=== PATIENT | female | born 1955 | race Hispanic/Latino ===

== ENCOUNTER 2018-09-23 20:04 | Inpatient (IN) | payer OTHER ==
[~2018-09-23] VITALS: Ht 154.9 cm; Wt 97.6 kg
--- OUTSIDE RECORDS SUMMARY | 2018-09-23 20:07 | XMS REPORT | Clinical Summary ---
Author Author ROBERTO [facility] Organization [facility] Address Unknown Phone Unavailable Care Team Providers Care Approver Name Role Phone Chen Orourke PCP Unavailable Allergies Comments Active Allergy Reactions Severity Noted Date Adhesive Itching, Rash Low 09/20/2018 Hands peeling, upper lip felt puffy Clindamycin Itching, Rash Low 09/20/2018 Latex Itching, Rash Low 07/02/2018 Medications End Date Status Medication Sig Dispensed Refills Start Date Active calcium carbonate Take 1 tablet 0 (CALCIUM 600 ORAL) by mouth daily. Active atorvastatin (LIPITOR) 10 Take 10 mg by 0 MG tablet mouth nightly. Active losartan (COZAAR) 50 MG Take 50 mg by 0 tablet mouth nightly. Active cinnamon bark 500 mg Take 500 mg 0 capsule by mouth daily. Active amLODIPine (NORVASC) 10 Take 10 mg by 0 MG tablet mouth daily. Active omeprazole (PRILOSEC) 40 Take 40 mg by 0 MG capsule mouth daily. Active metFORMIN (GLUCOPHAGE-XR) Take 500 mg 0 500 MG 24 hr tablet by mouth 2 (two) times daily. Active hydrocortisone 0.5 % Apply 0 cream topically as needed. 09/20/2018 Discontinued metFORMIN (GLUCOPHAGE) Take 500 mg 0 500 MG tablet by mouth 2 (two) times daily with breakfast and dinner. 09/20/2018 Discontinued pantoprazole (PROTONIX) Take 20 mg by 0 20 MG tablet mouth daily. 09/20/2018 Discontinued mlhmtqf-ehkahgcnhgkro-ugt Take 1 tablet 0 feine (EXCEDRIN MIGRAINE) by mouth 250-250-65 mg per tablet every 6 (six) hours as needed for Pain. 08/29/2018 amoxicillin (AMOXIL) 500 Take 1 21 capsule 0 08/19/201 MG capsule capsule (500 8 mg total) by mouth 3 (three) times daily for 10 days. 08/24/2018 predniSONE (DELTASONE) 50 Take 1 tablet 5 tablet 0 MG tablet (50 mg total) 8 by mouth daily for 5 days. 08/24/2018 famotidine (PEPCID) 20 MG Take 1 tablet 10 tablet 0 tablet (20 mg total) 8 by mouth 2 (two) times daily for 5 days. Active Problems Not on file Encounters Care Team Description Date Type Specialty Resource, [facility] Phone Arrived 09/20/2018 Hospital Pre-Admission Testing Encounter Stephane Kee MD Allergic reaction, initial encounter (Primary Dx); Rash; Cellulitis, unspecified cellulitis site 08/19/2018 Emergency Emergency Medicine 08/19/2018 Travel Chantell Franks MD 08/16/2018 Anesthesia Event Rajwinder Valentino MD COLONOSCOPY,POLYPECTOMY 08/16/2018 Surgery Rajwinder Valentino MD 08/16/2018 Hospital Encounter Resource, [facility] Phone 08/09/2018 Hospital Pre-Admission Testing Encounter after 09/22/2017 Social History Date Tobacco Use Types Packs/Day Years Used Quit: 2012 Former Smoker 0.5 40 Smokeless Tobacco: Never Used Alcohol Use Drinks/Week oz/Week Comments Yes occasionally Sex Assigned at Date Recorded Not on file Industry Job Start Date Occupation Not on file Not on file Not on file Travel End Travel History Travel Start No recent travel history available. Last Filed Vital Signs Time Taken Vital Sign Reading 08/19/2018 3:26 PM [employer] Blood Pressure 129/69 08/19/2018 3:26 PM [employer] Pulse 83 08/19/2018 3:26 PM [employer] Temperature 37.1 C (98.8 F) 08/19/2018 3:26 PM [employer] Respiratory Rate 18 08/19/2018 3:26 PM [employer] Oxygen Saturation 99% - Inhaled Oxygen - Concentration 09/20/2018 9:46 AM [employer] Weight 93.9 kg (207 lb) 09/20/2018 9:46 AM [employer] Height 154.9 cm (5' 1") 09/20/2018 9:46 AM [employer] Body Mass Index 39.11 Plan of Treatment Care Team Description Date Type Specialty Florin Spain MD [address] [address] 10/01/2018 Hospital Gastroenterology Encounter Florin Spain MD [address] [facility] [place] [address] UPPER ENDOSCOPY 10/01/2018 Surgery Gastroenterology Procedures Comments Procedure Name Priority Date/Time Associated Diagnosis REPORT OF PROCEDURE - 08/16/2018 ENDOSCOPY URL 2:25 PM [employer] TISSUE EXAM AP Routine 08/16/2018 2:03 PM [employer] POCT-GLUCOSE METER Routine 08/16/2018 1:01 PM [employer] COLONOSCOPY,POLYPECTOMY 08/16/2018 Screen for colon cancer 12:25 PM [employer] after 09/22/2017 Results * REPORT OF PROCEDURE - ENDOSCOPY URL (08/16/2018 2:25 PM [employer]) Narrative Performed At * Tissue Exam (08/16/2018 2:03 PM [employer]) Case Report Surgical Pathology [facility] Report [facility] Case: [id number] Authorizing Provider:Rajwinder Valentino MDCollecte d: 08/16/2018 1403 Ordering Location: [facility] ENDOSCOPY Received: 08/16/2018 1831 SERVICES Pathologist: Lindsey Ortez MD Specimen:Polyp, Colon - Rectum DIAGNOSIS A. RECTUM POLYP, BIOPSY: [facility] - INFLAMMATORY POLYP WITH [facility] GRANULATION TISSUE, SURFACE ULCERATIONS AND HYPERPLASTIC CHANGES ( see comment) - NEGATIVE FOR DYSPLASIA OR VIRAL CYTOPATHIC EFFECT Signing Pathologist Direct Phone Line: [phone] COMMENT These polyp can be seen in [facility] Crohn's disease, ulcerative [facility] colitis but they also occur in association with other disorders, such as ischemic colitis, necrotizing enterocolitis, and infectious colitis, diverticulitis, hemorrhoids and they commonly form at the edges of intestinal ulcers and mucosal anastomosis. Clinical correlation recommended.Endoscopic report reviewed. CPT Code(s) SJ/ew [facility] 26926 x1 [facility] CLINICAL HISTORY Screening for colon cancer [facility] SPECIMEN SOURCE Rectum colon polyp [facility] GROSS DESCRIPTION The specimen is received in a [facility] formalin-filled container and [facility] labeled with the patient's information and labeled "rectum colon polyp" and consists of a 0.3 cm fragment of barrera-white soft tissue, submitted entirely A1. CG/pl MICROSCOPIC DESCRIPTION Performed [facility] Specimen Tissue - Polyp, Colon - Rectum Performing Organization Address City/[facility] [address] [place] [address] [facility] * POC-Glucose meter (08/16/2018 1:01 PM [employer]) POC-Glucose Meter 138 (H)Comment: TESTED AT 70 - 110 mg/dL [facility] [address] [facility] [address] Specimen Blood Performing Organization Address City/[facility] Phone [facility] [address] [place] [address] [facility] after 09/22/2017 Insurance Payer Benefit Subscriber ID Type Phone Address Plan / Group [facility] xxxxxxxxxxxx HMO/POS [phone] [facility] CHOICE EXCHANGE
--- OUTSIDE RECORDS SUMMARY | 2018-09-23 20:07 | XMS REPORT | Continuity of Care Document ---
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 09/14/2018 [facility] Arthritis of hip Active 05/04/2017 09/14/2018 [facility] Acid reflux disease Active 12/10/2016 09/14/2018 [facility] Dry eye syndrome Active 08/08/2016 09/14/2018 [facility] Floaters Active 08/08/2016 09/14/2018 [facility] Dental calculus Active 06/13/2016 09/14/2018 [facility] Dyslipidemia on meds /f/u with PCP 2 mo 02/17 Active 02/04/2016 09/14/2018 [facility] Obesity, unspecified: pt refused to see nutritionsit 01/18 Active 02/04/2016 09/14/2018 [facility] Essential hypertension with goal blood pressure less than 140/90: stable on meds /f/u wtih PCP 2 mo Active 02/04/2016 09/14/2018 [facility] Arthralgia of left hip: had PT and seen Orhto /plan for surgery soon per patient 02/17 Active 02/04/2016 09/14/2018 [facility] Gastritis: d/c dex, nexium meds 02/17//f/u with PCP in 2 mo//pt educated to d/c food which increased symptms t Active 02/04/2016 09/14/2018 [facility] Loss of weight: loosign weight ? gastritis: meds changed / f/u with PCP in 2m Active 02/04/2016 09/14/2018 [facility] Dental abrasion: seen dental 01/18//given abx preprocedure perpatient and f/u on 02/11/16 Active 08/01/2015 09/14/2018 [facility] Hyperopia with astigmatism and presbyopia Active 07/25/2015 09/14/2018 [facility] Nuclear sclerosis Active 07/25/2015 09/14/2018 [facility] No diabetic retinopathy in both eyes Active 07/25/2015 09/14/2018 [facility] Dental decay Active 06/14/2015 09/14/2018 [facility] Dental plaque Active 03/22/2015 09/14/2018 [facility] Asymptomatic cholelithiasis Active 10/04/2014 09/14/2018 [facility] Anemia, unspecified Active 06/30/2013 09/14/2018 [facility] Edentulism, partial Active 06/16/2013 09/14/2018 [facility] Edentulous Active 01/19/2013 09/14/2018 [facility] Nasal septal deviation Active 06/01/2012 09/14/2018 [facility] Nystagmus Active 12/24/2011 09/14/2018 [facility] Gait instability Active 12/24/2011 09/14/2018 [facility] [id number] Active 09/14/2018 [facility] 78302971 Active 09/14/2018 [facility] 257439829 Active 09/14/2018 [facility] 294431115 Active 09/14/2018 [facility] Medications Medication Details Route Status Patient Instructions Ordering Provider Order Date Source chlorhexidine (PERIDEX) 0.12 % mouth wash Swish and Spit 15 mL by mouth 2 times daily for 14 days Swish with 1/2 oz of solution in mouth for 30 seconds and spit. Use twice daily.. No Longer Active 09/14/2017 [facility] ergocalciferol (VITAMIN D2) 50,000 unit capsule Take 1 capsule by mouth weekly. Oral Active 06/16/2017 [facility] losartan (COZAAR) 50 mg tablet Take 1 tablet by mouth daily. Oral Active 06/09/2017 [facility] naproxen (NAPROSYN) 500 mg tablet Take 1 tablet by mouth 2 times daily (with meals). Oral Active 06/09/2017 [facility] metFORMIN (GLUCOPHAGE XR) 500 mg ER extended release tablet Take 2 tablets by mouth daily (with breakfast). Oral Active 06/09/2017 [facility] omeprazole (PRILOSEC) 20 mg delayed release capsule Take 1 capsule by mouth daily. Oral Active 12/31/2016 [facility] Mlrugzspnyy-Lujoveuas-Kosyympd (THERAFLU COLD-SORE THROAT, PE,) 20-10-325 mg PwPk Take 1 Packet by mouth 2 times daily as needed for Pain or Fever > 100.5. Oral No Longer Active 12/26/2016 [facility] atorvastatin (LIPITOR) 10 mg tablet Take 1 tablet by mouth at bedtime nightly. Oral Active 11/25/2016 [facility] gabapentin (NEURONTIN) 600 mg tablet Take 1 tablet by mouth 3 times daily. Oral Active 11/03/2016 [facility] hydrocortisone 2.5 % topical cream Apply to affected area 2 times daily. Topical No Longer Active 03/19/2016 [facility] benzocaine-menthol (CEPACOL SORE THROAT, CAMRYN-MEN,) 15-2.6 mg Lozg by Mucous Membrane route. Mucous Membrane No Longer Active 03/08/2016 [facility] fluticasone (FLONASE) 50 mcg/actuation nasal spray Use 1 [place] in each nostril daily. No Longer Active 03/08/2016 [facility] blood glucose (PRECISION XTRA TEST STRIPS) test strips 2 times weekly. No Longer Active 06/07/2015 [facility] CALCIUM CARBONATE/VITAMIN D2 (CALCIUM 500 WITH VITAMIN D OR) 1 tablet po once daily . Active [facility] FERROUS FUMARATE/VIT BCOMP,C (SUPER B COMPLEX OR) 1 tablet po once daily . Active [facility] TURMERIC ROOT EXTRACT OR 1 tablet po once daily . Active [facility] CINNAMON BARK (CINNAMON OR) 2 tablets po once daily . Active [facility] Allergies, Adverse Reactions, Alerts Substance Category Reaction Severity Reaction type Status Date Reported Comments Source Immunizations Immunization Date Given Site Status Last Updated Comments Source Influenza Vaccine, Seasonal, Injectable 08/11/2017 completed [facility] Influenza Vaccine 12/26/2016 Not Given Deferred: Contraindication - Flu A positive [facility] Influenza Vaccine 12/03/2016 Not Given Deferred: Other - not today per pt [facility] Influenza Vaccine 12/22/2015 completed [facility] Influenza Vaccine 10/11/2014 completed [facility] Ketorolac 30mg/1ml Inj (x ) 08/23/2014 completed [facility] Influenza Vaccine 10/10/2013 completed [facility] Hepatitis B Vaccine 10/10/2013 completed [facility] PPD 04/25/2013 completed [facility] PPD 04/22/2013 completed [facility] Hepatitis B Vaccine 02/24/2013 completed [facility] Hepatitis B Vaccine 01/25/2013 completed [facility] Influenza Vaccine 09/16/2011 completed [facility] Influenza Vaccine 09/23/2010 completed [facility] Influenza A (H1N1) Vac Injection 10/16/2009 completed [facility] Influenza Vaccine 07/09/2009 completed [facility] PPV 23 Pneumococcal Polysaccaride 05/07/2009 completed [facility] Tdap Tetanus, diphtheria, acellular pertussis Vaccine 05/07/2009 completed [facility] Results Order Name Results Value Reference Range Date Interpretation Comments Source MAMMOGRAM BILAT SCREEN DIGITAL <p>IMPRESSION: BENIGN</p><p>There is no mammographic evidence of malignancy. A 1 year </p><p>screening mammogram is recommended.</p><p> </p><p>I have reviewed the study and agree with the findings in the </p><p>report.</p><p> </p><p>This document has been electronically signed.</p><p> </p><p>Manuela Godoy M.D.</p><p>ty nguyen/penrad:10/22/2017 11:16:32</p><p> </p><p>Junior Automation Engineer: Venkatesh Kilpatrick [facility] </p><p>[facility] </p><p>letter sent: Benign Exam</p><p>Mammogram BI-RADS: 2 Benign G0202 Z12.31</p> IMPRESSION: BENIGN There is no mammographic evidence of malignancy. A 1 year screening mammogram is recommended. I have reviewed the study and agree with the findings in the report. This document has been electronically signed. ty Prince M.D./penrad:10/22/2017 11:16:32 Junior Automation Engineer: Beatriz Ayala [facility] letter sent: Benign Exam Mammogram BI-RADS: 2 Benign G0202 Z12.31 10/22/2017 [facility] MAMMOGRAM BILAT SCREEN DIGITAL <p> </p><p>#[id number] - MAMMOGRAM BILAT SCREEN DIGITAL</p><p>BILATERAL DIGITAL SCREENING MAMMOGRAM WITH CAD: 10/22/2017</p><p>CLINICAL: Screening for malignancy.</p><p> </p><p>Comparison is made to exams dated:08/13/2016 [facility] </p><p>Center, 07/23/2015 [facility], 03/31/2014, </p><p>03/11/2013 [facility], 01/02/2012, and 07/02/2010 </p><p>[facility].</p><p>The tissue of both breasts is predominately fatty.</p><p>Current study was also evaluated with a Computer Aided Detection </p><p>(CAD) system.</p><p>There are benign calcifications in the left breast.</p><p>No significant masses, calcifications, or other findings are seen </p><p>in either breast.</p><p>There has been no significant interval change.</p><p> </p> #[id number] - MAMMOGRAM BILAT SCREEN DIGITAL BILATERAL DIGITAL SCREENING MAMMOGRAM WITH CAD: 10/22/2017 CLINICAL: Screening for malignancy. Comparison is made to exams dated:08/13/2016 [facility], 07/23/2015 [facility], 03/31/2014, 03/11/2013 [facility], 01/02/2012, and 07/02/2010 [facility]. The tissue of both breasts is predominately fatty. Current study was also evaluated with a Computer Aided Detection (CAD) system. There are benign calcifications in the left breast. No significant masses, calcifications, or other findings are seen in either breast. There has been no significant interval change. 10/22/2017 [facility] MAMMOGRAM BILAT SCREEN DIGITAL <p styleCode="header">Interface, Rad/Mammog In - 10/22/2017 11:43 AM LOCAL ANNOUNCER</p><p>
<span>#[id number] - MAMMOGRAM BILAT SCREEN DIGITAL</span>
<span>BILATERAL DIGITAL SCREENING MAMMOGRAM WITH CAD: 10/22/2017</span>
<span>CLINICAL: Screening for malignancy. </span>

<span>Comparison is made to exams dated: 08/13/2016 [facility] </span>
<span>Center, 07/23/2015 [facility], 03/31/2014, </span>
<span>03/11/2013 [facility], 01/02/2012, and 07/02/2010 </span>
<span>[facility]. </span>
<span>The tissue of both breasts is predominately fatty. </span>
<span>Current study was also evaluated with a Computer Aided Detection </span>
<span>(CAD) system. </span>
<span>There are benign calcifications in the left breast. </span>
<span>No significant masses, calcifications, or other findings are seen </span>
<span>in either breast. </span>
<span>There has been no significant interval change.</span>

<span>IMPRESSION</span>
<span>IMPRESSION: BENIGN</span>
<span>There is no mammographic evidence of malignancy. A 1 year </span>
<span>screening mammogram is recommended. </span>

<span>I have reviewed the study and agree with the findings in the </span>
<span>report.</span>

<span>This document has been electronically signed.</span>

<span>Manuela Godoy M.D.</span>
<span>ty nguyen/feliciano:10/22/2017 11:16:32 </span>

<span>Junior Automation Engineer: Beatriz Ayala [facility] </span>
<span>Clinic </span>
<span>letter sent: Benign Exam </span>
<span>Mammogram BI-RADS: 2 Benign G0202 Z12.31</span></p> Interface, Rad/Mammog In - 10/22/2017 11:43 AM LOCAL ANNOUNCER #[id number] - MAMMOGRAM BILAT SCREEN DIGITAL BILATERAL DIGITAL SCREENING MAMMOGRAM WITH CAD: 10/22/2017 CLINICAL: Screening for malignancy. Comparison is made to exams dated: 08/13/2016 [facility], 07/23/2015 [facility], 03/31/2014, 03/11/2013 [facility], 01/02/2012, and 07/02/2010 [facility]. The tissue of both breasts is predominately fatty. Current study was also evaluated with a Computer Aided Detection (CAD) system. There are benign calcifications in the left breast. No significant masses, calcifications, or other findings are seen in either breast. There has been no significant interval change. IMPRESSION IMPRESSION: BENIGN There is no mammographic evidence of malignancy. A 1 year screening mammogram is recommended. I have reviewed the study and agree with the findings in the report. This document has been electronically signed. ty Cadena M.D., M.D./penrad:10/22/2017 11:16:32 Junior Automation Engineer: Beatriz Ayala, [facility] letter sent: Benign Exam Mammogram BI-RADS: 2 Benign G0202 Z12.31 10/22/2017 [facility] Vital Signs Vital Sign Value Date Comments Source Systolic (mm Hg) 121 09/09/2018 [facility] Diastolic (mm Hg) 70 09/09/2018 [facility] Heart Rate 95 09/09/2018 [facility] Temperature Oral (F) 36.78 Dinah 09/24/2017 [facility] Respitory Rate 18 09/24/2017 [facility] Weight 95.8 09/24/2017 [facility] Height 156.3 cm 09/14/2017 [facility] Encounters Location Location Details Encounter Type Encounter Number Reason For Visit Attending Provider ADM Date DC Date Status Source [facility] Office Visit [id number] Honey Morris MD 09/14/2017 09/14/2017 [facility] Midwifery [facility] OB [id number] Honey Morris MD 09/24/2017 09/24/2017 [facility] Obstetrics [facility] Ancillary Procedure [id number] Heide Guevara CNAmmon 10/22/2017 10/22/2017 [facility] Location Office Visit [id number] Lavelle Shaw DDS 07/21/2018 07/21/2018 [facility] [place] Telephone [id number] Vee Barakat RN 09/08/2018 [facility] Travel [id number] 09/09/2018 [facility] [place] Office Visit [id number] Marilee Chiang DDS 09/09/2018 09/09/2018 [facility] Procedures Procedure Code Date Perfomer Comments Source MAMMOGRAM BILAT SCREEN DIGITAL G0202 10/22/2017 [facility] HPV HIGH-RISK [id number] 09/24/2017 [facility] BT CYTOLOGY [id number] 09/24/2017 [facility] GROUP A STREP SCREEN [id number] 09/15/2017 [facility]
--- OUTSIDE RECORDS SUMMARY | 2018-09-23 20:07 | XMS REPORT | Clinical Summary ---
Author Author [facility] Organization [facility] Address Unknown Phone Unavailable Care Team Providers Care Power Brake Operator Name Role Phone Carlita Hess DDS 6 Edgar Taylor MD PCP Allergies No Known Allergies Medications End Date Status Medication Sig Dispensed Refills Start Date Active gabapentin (NEURONTIN) Take 1 tablet 270 tablet 3 600 mg tabletIndications: by mouth 3 7 Neuropathic pain times daily. Active atorvastatin (LIPITOR) 10 Take 1 tablet 90 tablet 3 mg tabletIndications: by mouth at 7 Mixed hyperlipidemia bedtime nightly. Active omeprazole (PRILOSEC) 20 Take 1 90 capsule 2 mg delayed release capsule by 7 capsuleIndications: mouth daily. Gastroesophageal reflux disease without esophagitis, Epigastric pain Active CALCIUM CARBONATE/VITAMIN 1 tablet po 0 D2 (CALCIUM 500 WITH once daily . VITAMIN D OR) Active FERROUS FUMARATE/VIT 1 tablet po 0 BCOMP,C (SUPER B COMPLEX once daily . OR) Active TURMERIC ROOT EXTRACT OR 1 tablet po 0 once daily . Active CINNAMON BARK (CINNAMON 2 tablets po 0 OR) once daily . Active losartan (COZAAR) 50 mg Take 1 tablet 90 tablet 3 tabletIndications: by mouth 7 Essential hypertension daily. Active naproxen (NAPROSYN) 500 Take 1 tablet 180 tablet 2 mg tabletIndications: by mouth 2 7 Chronic left hip pain, times daily Chronic low back pain, (with meals). Lumbar herniated disc Active metFORMIN (GLUCOPHAGE XR) Take 2 180 tablet 3 500 mg ER extended tablets by 7 release mouth daily tabletIndications: Well (with controlled type 2 breakfast). diabetes mellitus Active ergocalciferol (VITAMIN Take 1 12 capsule 0 D2) 50,000 unit capsule capsule by 7 mouth weekly. 09/14/2017 Discontinued blood glucose (PRECISION 2 times 1 Box 6 XTRA TEST STRIPS) test weekly. 5 stripsIndications: Diabetes mellitus 09/14/2017 Discontinued benzocaine-menthol by Mucous 20 Lozenge 0 (CEPACOL SORE THROAT, Membrane 6 CAMRYN-MEN,) 15-2.6 mg route. LozgIndications: Acute pharyngitis, unspecified etiology 09/14/2017 Discontinued fluticasone (FLONASE) 50 Use 1 [place] 16 g 0 mcg/actuation nasal in each 6 sprayIndications: Acute nostril pharyngitis, unspecified daily. etiology 09/14/2017 Discontinued hydrocortisone 2.5 % Apply to 20 g 0 topical creamIndications: affected area 6 Seasonal allergies, Itchy 2 times skin, Peeling skin daily. 09/14/2017 Discontinued Uytymfzhjgz-Agdfckndd-Lma Take 1 Packet 10 Packet 0 tamin (THERAFLU COLD-SORE by mouth 2 7 THROAT, PE,) 20-10-325 mg times daily PwPkIndications: as needed for Influenza A, Influenza Pain or Fever with other respiratory > 100.5. manifestations 09/30/2017 chlorhexidine (PERIDEX) Swish and 473 mL 0 0.12 % mouth Spit 15 mL by 7 washIndications: Sore mouth 2 times throat daily for 14 days Swish with 1/2 oz of solution in mouth for 30 seconds and spit. Use twice daily.. 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 Arthritis of hip 05/04/2017 Acid reflux disease 12/10/2016 Dry eye syndrome 08/08/2016 Floaters 08/08/2016 Dental calculus 06/13/2016 Dyslipidemia on meds /f/u with PCP 2 mo 02/1702/04/2016 Obesity, unspecified: pt refused to see nutritionsit 01/1802/04/2016 Essential hypertension with goal blood pressure less than 140/90: stable on 02/04/2016 meds /f/u wtih PCP 2 mo Arthralgia of left hip: had PT and seen Orhto /plan for surgery soon per 02/04/2016 patient 02/17 Gastritis: d/c dex, nexium meds 02/17//f/u with PCP in 2 mo//pt educated to 02/04/2016 d/c food which increased symptms t Loss of weight: loosign weight ? gastritis: meds changed / f/u with PCP in 02/04/2016 2m Dental abrasion: seen dental 01/18//given abx preprocedure perpatient and 08/01/2015 f/u on 02/11/16 Hyperopia with astigmatism and presbyopia 07/25/2015 Nuclear sclerosis 07/25/2015 No diabetic retinopathy in both eyes 07/25/2015 Dental decay 06/14/2015 Dental plaque 03/22/2015 Asymptomatic cholelithiasis 10/04/2014 Anemia, unspecified 06/30/2013 Edentulism, partial 06/16/2013 Edentulous 01/19/2013 Nasal septal deviation 06/01/2012 Nystagmus 12/24/2011 Gait instability 12/24/2011 Resolved Problems Problem Noted Date Resolved Date Epigastric pain 12/10/2016 09/14/2017 LBP (low back pain) 01/17/2014 09/14/2017 Hip pain 11/15/2013 09/14/2017 Right foot pain 01/02/2010 09/14/2017 Encounters Care Team Description Date Type Specialty Marilee Chiang DDS Chronic periodontitis (Primary Dx) 09/09/2018 Office Visit Dentistry 09/09/2018 Travel Vee Barakat RN Other (returning patient call) 09/08/2018 Telephone Lavelle Shaw DDS Pain, dental (Primary Dx) 07/21/2018 Office Visit Dentistry Heide Guevara CNM Encounter for annual routine gynecological examination 10/22/2017 Ancillary Radiology Procedure Honey Morris MD Tigner, Caroline, CNM Encounter for annual routine gynecological examination (Primary Dx) 09/24/2017 OB Obstetrics Honey Morris MD Tran, Chau M, MD Sore throat (Primary Dx) 09/14/2017 Office Visit Family Practice after 09/13/2017 Immunizations Name Dates Previously Given Next Due Hepatitis B Vaccine 10/10/2013, 02/24/2013, 01/25/2013 Influenza A (H1N1) Vac 10/16/2009 Injection Influenza Vaccine 12/26/2016 (Deferred: Contraindication - Flu A positive), 12/03/2016 (Deferred: Other - not today per pt), 12/22/2015, 10/11/2014, 10/10/2013, 09/16/2011, 09/23/2010, 07/09/2009 Influenza Vaccine, 08/11/2017 Seasonal, Injectable Ketorolac 30mg/1ml Inj 08/23/2014 (x ) PPD 04/25/2013, 04/22/2013 PPV 23 Pneumococcal 05/07/2009 Polysaccaride Tdap Tetanus, diphtheria, 05/07/2009 acellular pertussis Vaccine Family History Medical History Relation Name Comments Asthma Brother Psychiatry Father etoh; of liver cirrhosis Cancer Maternal Aunt breast cancer, living, dx in her 50's Arthritis Maternal Aunt Cancer Maternal lung cancer?; smoker; at age 94yo Grandmother Heart Maternal Grandmother Pulmonary Maternal copd Grandmother Arthritis Mother Seizures Other neice with sz disorder Diabetes Paternal Aunt Diabetes Paternal Aunt Cancer Paternal Aunt colon cancer, dx in her 50's; now but not from cancer per pt Heart Paternal Grandmother Heart Paternal massive [place] Uncle Heart Paternal Uncle Diabetes Sister Hypothyroid Sister Relation Name Status Comments Brother Alive Brother Daughter Alive Father Maternal Aunt Maternal Aunt Maternal Grandfather Maternal Grandmother Mother Alive Other Paternal Aunt Paternal Aunt Paternal Aunt Paternal Grandfather Paternal Grandmother Paternal Uncle Paternal Uncle Sister Alive Sister Sister Social History Date Tobacco Use Types Packs/Day Years Used Quit: 06/29/2012 Former Smoker Cigarettes 0.5 35 Smokeless Tobacco: Former User Tobacco Cessation: Counseling Given: No Comments: quit ~3 years ago Alcohol Use Drinks/Week oz/Week Comments Yes 0 Standard 0.0 4 x per month; drinks beer or margaritas; 2 to 3 drinks or drinks per occasion equivalent Sex Assigned at Date Recorded Not on file Industry Job Start Date Occupation Not on file Not on file Not on file Travel End Travel History Travel Start No recent travel history available. Last Filed Vital Signs Time Taken Vital Sign Reading 09/09/2018 10:54 AM FUR CLIPPER Blood Pressure 121/70 09/09/2018 10:54 AM FUR CLIPPER Pulse 95 09/24/2017 9:31 AM FUR CLIPPER Temperature 36.8 C (98.2 F) 09/24/2017 9:31 AM FUR CLIPPER Respiratory Rate 18 - Oxygen Saturation - - Inhaled Oxygen - Concentration 09/24/2017 9:31 AM FUR CLIPPER Weight 95.8 kg (211 lb 3.2 oz) 09/14/2017 1:53 PM FUR CLIPPER Height 156.3 cm (5' 1.54") 09/14/2017 1:53 PM FUR CLIPPER Body Mass Index 39.22 Plan of Treatment Care Team Description Date Type Specialty Devora Mendoza MD [address] [place], [place] [id number] eye exam 10/12/2018 Office Visit Ophthalmology Health Maintenance Due Date Last Done Comments Cervical Cancer Scrn (3 08/03/2017 08/03/2014, 09/16/2011 Yrs) DM Retinal Exam (Yearly) 08/08/2017 08/08/2016, 07/25/2015, 07/25/2015 (Previously completed - External), Additional history exists Colorectal Cancer Scrn 12/11/2017 12/11/2016, 12/24/2015, 05/02/2009 Annual (FIT/FOBT) Age 50 to 75 DM Foot Exam (Yearly) 12/26/2017 12/26/2016, 03/16/2014, 01/25/2013, Additional history exists DM HGBA1C (Yearly) 05/15/2018 05/15/2017, 02/19/2017, 10/03/2016, Additional history exists DM Microalbumin Urine 05/15/2018 05/15/2017, 05/15/2017, 05/15/2017, Scrn (Yearly) Additional history exists Breast Cancer Scrn 10/22/2018 10/22/2017, 08/13/2016, 07/23/2015, (Yearly) Additional history exists Procedures Comments Procedure Name Priority Date/Time Associated Diagnosis MAMMOGRAM BILAT SCREEN Routine 10/22/2017 Encounter for annual DIGITAL 11:14 AM FUR CLIPPER routine gynecological examination HPV HIGH-RISK Routine 09/24/2017 Encounter for annual 9:47 AM FUR CLIPPER routine gynecological examination BTGH CYTOLOGY Routine 09/24/2017 12:00 AM FUR CLIPPER GROUP A STREP SCREEN STAT 09/14/2017 Sore throat 2:14 PM FUR CLIPPER after 09/13/2017 Results * MAMMOGRAM BILAT SCREEN DIGITAL (10/22/2017 11:14 AM FUR CLIPPER) Impressions Performed At IMPRESSION: BENIGN SMS There is no mammographic evidence of malignancy. A 1 year screening mammogram is recommended. I have reviewed the study and agree with the findings in the report. This document has been electronically signed. ty Prince M.D./feliciano:10/22/2017 11:16:32 Principal Systems Architect: Beatriz Ayala, [facility] letter sent: Benign Exam Mammogram BI-RADS: 2 Benign G0202 Z12.31 Narrative Performed At #[id number] - MAMMOGRAM BILAT SCREEN DIGITAL SMS BILATERAL DIGITAL SCREENING MAMMOGRAM WITH CAD: 10/22/2017 CLINICAL: Screening for malignancy. Comparison is made to exams dated:08/13/2016 [facility], 07/23/2015 [facility], 03/31/2014, 03/11/2013 [facility], 01/02/2012, and 07/02/2010 [facility]. The tissue of both breasts is predominately fatty. Current study was also evaluated with a Computer Aided Detection (CAD) system. There are benign calcifications in the left breast. No significant masses, calcifications, or other findings are seen in either breast. There has been no significant interval change. Procedure Note Interface, Rad/Mammog In - 10/22/2017 11:43 AM FUR CLIPPER #[id number] - MAMMOGRAM BILAT SCREEN DIGITAL BILATERAL DIGITAL SCREENING MAMMOGRAM WITH CAD: 10/22/2017 CLINICAL: Screening for malignancy. Comparison is made to exams dated: 08/13/2016 [facility], 07/23/2015 [facility], 03/31/2014, 03/11/2013 [facility], 01/02/2012, and 07/02/2010 [facility]. The tissue of both breasts is [...] has been electronically signed. ty Cadena M.D., M.D./feliciano:10/22/2017 11:16:32 Principal Systems Architect: Beatriz Ayala [facility] letter sent: Benign Exam Mammogram BI-RADS: 2 Benign G0202 Z12.31 Performing Organization Address City/State/Zipcode Phone Number SMS * HPV HIGH-RISK (09/24/2017 9:47 AM FUR CLIPPER) HPV High Risk Comment: NEG BT DIAGNOSTIC The APTIMA HPV Assay is an in IMMUNOLOGY vitro nucleic acid amplification test for the qualitative detection of E6/E7 viral messenger RNA (mRNA) from 14 high-risk types of human papillomavirus (HPV) in cervical specimens. The high-risk HPV types detected by the assay include: 16,18,31,33,35,39,45,51,52,56, 58,59,66, and 68. CoPath Spec BT MOLECULAR Number PATHOLOGY Performing Organization Address City/State/[facility] Phone Number MISYS BT DIAGNOSTIC IMMUNOLOGY BT MOLECULAR PATHOLOGY * BTGH CYTOLOGY (09/24/2017 12:00 AM FUR CLIPPER) BT Cytology MISYS Performing Organization Address City/State/[facility] Phone Number MISYS * GROUP A STREP SCREEN (09/14/2017 2:14 PM FUR CLIPPER) Group A Strep NEG LE STATION 3 Specimen Other (Specify in Comments) - THROAT Performing Organization Address City/[facility] Phone Number MISYS LE STATION 3 after 09/13/2017 Insurance Type Payer Benefit Subscriber ID Effective Phone Address Plan / Dates Group [facility] xxxxxxxxxxxx 2017-[address] [facility] [id number] [facility] [address] [facility] xxxxx 2018- [phone] [id number] [place] [address] Advance Directives For more information, please contact: [address] [address] Date Inactivated Comments Code Status Date Activated 12/26/2011 5:08 PM Full Code 12/24/2011 4:51 PM
--- OUTSIDE RECORDS SUMMARY | 2018-09-23 20:07 | XMS REPORT | Clinical Summary ---
Author Author [facility] Organization [facility] Address Unknown Phone Unavailable Care Team Providers Care Metal Tube Cutter Name Role Phone Carlita Hess DDS 6 [...] 09/14/2017 Discontinued fluticasone (FLONASE) 50 Use 1 [place] 16 g 0 mcg/actuation nasal in each 6 sprayIndications: Acute nostril pharyngitis, unspecified daily. etiology 09/14/2017 Discontinued hydrocortisone 2.5 % Apply to 20 g 0 topical creamIndications: affected area 6 Seasonal allergies, Itchy 2 times skin, Peeling skin daily. 09/14/2017 Discontinued Nzjawnbznxq-Ytlecfwup-Xli Take 1 Packet 10 Packet 0 tamin [...] Dx) 09/14/2017 Office Visit Family Practice after 09/08/2017 Immunizations Name Dates Previously Given Next Due [...] pt Heart Paternal Grandmother Heart Paternal massive [place] Uncle Heart Paternal Uncle Diabetes Sister Hypothyroid [...] Taken Vital Sign Reading 09/09/2018 10:54 AM CORPORATE SAFETY DIRECTOR Blood Pressure 121/70 09/09/2018 10:54 AM CORPORATE SAFETY DIRECTOR Pulse 95 09/24/2017 9:31 AM CORPORATE SAFETY DIRECTOR Temperature 36.8 C (98.2 F) 09/24/2017 9:31 AM CORPORATE SAFETY DIRECTOR Respiratory Rate 18 - Oxygen Saturation - - Inhaled Oxygen - Concentration 09/24/2017 9:31 AM CORPORATE SAFETY DIRECTOR Weight 95.8 kg (211 lb 3.2 oz) 09/14/2017 1:53 PM CORPORATE SAFETY DIRECTOR Height 156.3 cm (5' 1.54") 09/14/2017 1:53 PM CORPORATE SAFETY DIRECTOR Body Mass Index 39.22 Plan of Treatment Care Team Description Date Type Specialty Devora Mendoza MD [address] [place], [place] [id number] eye exam 10/12/2018 Office Visit Ophthalmology Health [...] 10/22/2017 Encounter for annual DIGITAL 11:14 AM CORPORATE SAFETY DIRECTOR routine gynecological examination HPV HIGH-RISK Routine 09/24/2017 Encounter for annual 9:47 AM CORPORATE SAFETY DIRECTOR routine gynecological examination [facility] CYTOLOGY Routine 09/24/2017 12:00 AM CORPORATE SAFETY DIRECTOR GROUP A STREP SCREEN STAT 09/14/2017 Sore throat 2:14 PM CORPORATE SAFETY DIRECTOR after 09/08/2017 Results * MAMMOGRAM BILAT SCREEN DIGITAL (10/22/2017 11:14 AM CORPORATE SAFETY DIRECTOR) Impressions Performed At IMPRESSION: BENIGN SMS There is no mammographic evidence of malignancy. A 1 year screening mammogram is recommended. I have reviewed the study and agree with the findings in the report. This document has been electronically signed. ty Prince M.D./feliciano:10/22/2017 11:16:32 Insurance Processor: Beatriz Ayala, [facility] letter sent: Benign Exam Mammogram BI-RADS: 2 Benign G0202 Z12.31 Narrative Performed At #[id number] - MAMMOGRAM BILAT SCREEN DIGITAL SMS BILATERAL DIGITAL SCREENING MAMMOGRAM WITH CAD: 10/22/2017 CLINICAL: Screening for malignancy. Comparison is made to exams dated:08/13/2016 [facility], 07/23/2015 [facility], 03/31/2014, 03/11/2013 [facility], 01/02/2012, and 07/02/2010 [facility]. The tissue of both breasts is predominately fatty. Current study was also evaluated with a Computer Aided Detection (CAD) system. There are benign calcifications in the left breast. No significant masses, calcifications, or other findings are seen in either breast. There has been no significant interval change. Procedure Note Interface, Rad/Mammog In - 10/22/2017 11:43 AM CORPORATE SAFETY DIRECTOR #[id number] - MAMMOGRAM BILAT SCREEN DIGITAL BILATERAL DIGITAL SCREENING MAMMOGRAM WITH CAD: 10/22/2017 CLINICAL: Screening for malignancy. Comparison is made to exams dated: 08/13/2016 [facility], 07/23/2015 [facility], 03/31/2014, 03/11/2013 [facility], 01/02/2012, and 07/02/2010 [facility]. The tissue of both breasts is predominately [...] electronically signed. ty Cadena M.D., M.D./feliciano:10/22/2017 11:16:32 Insurance Processor: Beatriz Ayala [facility] letter sent: Benign Exam Mammogram BI-RADS: 2 Benign G0202 Z12.31 Performing Organization Address City/State/Zipcode Phone Number SMS * HPV HIGH-RISK (09/24/2017 9:47 AM CORPORATE SAFETY DIRECTOR) HPV High Risk Comment: NEG BT DIAGNOSTIC The APTIMA HPV Assay is an in IMMUNOLOGY vitro nucleic acid amplification test for the qualitative detection of E6/E7 viral messenger RNA (mRNA) from 14 high-risk types of human papillomavirus (HPV) in cervical specimens. The high-risk HPV types detected by the assay include: 16,18,31,33,35,39,45,51,52,56, 58,59,66, and 68. CoPath Spec BT MOLECULAR Number PATHOLOGY Performing Organization Address City/State[facility] Phone Number MISYS BT DIAGNOSTIC IMMUNOLOGY BT MOLECULAR PATHOLOGY * [facility] CYTOLOGY (09/24/2017 12:00 AM CORPORATE SAFETY DIRECTOR) BT Cytology MISYS Performing Organization Address City/State/[facility] Phone Number MISYS * GROUP A STREP SCREEN (09/14/2017 2:14 PM CORPORATE SAFETY DIRECTOR) Group A Strep NEG LE STATION 3 Specimen Other (Specify in Comments) - THROAT Performing Organization Address City/[facility] Phone Number MISYS LE STATION 3 after 09/08/2017 Insurance Type Payer Benefit Subscriber ID Effective Phone Address Plan / Dates Group [facility] xxxxxxxxxxxx 2017-[address] [facility] [id number] [facility] [id number] [facility] xxxxx 2018- [phone] [id number] [place] [address] Advance Directives For more information, please contact: [address] [address] Date Inactivated Comments Code Status Date Activated 12/26/2011 5:08 PM Full Code 12/24/2011 4:51 PM
--- OUTSIDE RECORDS SUMMARY | 2018-09-23 20:07 | XMS REPORT | Summary of Care ---
Author Author MC DRISCOLL M.D. Organization Unknown Address [facility] Phone Unavailable Care Team Providers Care Chef De Froid Name Role Phone MC DRISCOLL M.D. Unavailable Unavailable Unavailable Unavailable Functional Status Name Dates Details Functional status health issues are not documented Status: Name Dates Details Cognitive status health issues are not documented Status: Problems Name Dates Details Hip pain, left (719.45, M25.552) Status: Active Primary localized osteoarthritis of left hip (715.15, M16.12) Status: Active Avascular necrosis of hip, left (733.42, M87.052) Status: Active Medications Name Dates Details Celecoxib 200 MG Oral Capsule TAKE ONE CAPSULE BY MOUTH TWICE DAILY FOR 4 WEEKS Quantity: 60 MC DRISCOLL M.D. * Start : 01-Jan-2018 Active Atorvastatin Calcium 10 MG Oral Tablet * Refills: 0 Active Gabapentin 600 MG Oral Tablet * Refills: 0 Active Cinnamon 500 MG Oral Capsule * Refills: 0 Active Iron (Ferrous Gluconate) TABS * Refills: 0 Active Vitamin D TABS * Refills: 0 Active Losartan Potassium 50 MG Oral Tablet * Refills: 0 Active Naproxen 500 MG Oral Tablet * Refills: 0 Active MetFORMIN HCl - 500 MG Oral Tablet * Refills: 0 Active Allergies and Adverse Reactions Name Dates Details No Known Allergies (Allergy) Status: Active Past Medical History Name Dates Details History of asthma (V12.69, Z87.09) Status: Resolved History of depression (V11.8, Z86.59) Status: Resolved History of diabetes mellitus (V12.29, Z86.39) Status: Resolved History of hypertension (V12.59, Z86.79) Status: Resolved Procedures Procedure Dates Details History of ankle surgery Completed Immunization Name Dates Details Immunizations not documented Family History Name Dates Details Family history of malignant neoplasm (V16.9, Z80.9) Comments: Other Status: Active Family history of TB (tuberculous cystitis) (016.10, A18.12) Comments: Other Status: Active Family history of diabetes mellitus (V18.0, Z83.3) Comments: Other Status: Active Name Dates Details Family history of diabetes mellitus (V18.0, Z83.3) Status: Active Social History Name Dates Details - Status: Name Dates Details Never smoker Vital Signs Date Test Result Details [id number] BP Systolic 98 mm[Hg] Status: BP Diastolic 65 mm[Hg] Status: Height 61 in Status: Weight 213 lb Status: Body Mass Index Calculated 40.25 kg/m2 Status: Body Surface Area Calculated 1.94 m2 Status: Heart Rate 77 /min Status: Results Date Description Value Details Results not documented Plan of Care Name Dates Details Planned Observations Planned Goals not documented Planned Encounters Appointment; MC DRISCOLL M.D. On: 09-Feb-2018 11:45 Appointment; BRITT SNOWDEN P.A. On: 26-Feb-2018 9:45 Interventions Provided Medication Changes* Celecoxib 200 MG Oral Capsule - Start Labs/Procedures/Imaging* [U] XRAY HIP UNILATERAL MIN 2 VWS LEFT [id number]; Done: 01 Jan 2018 * [U] XRAY PELVIS 1 OR 2 VWS [id number]; Done: 01 Jan 2018 Instructions* Patient Specific Education Given; Done: 01 Jan 2018 Plan* Completed at Today's Appointment: * SURVEY COMPLETED * Patient Education/Instructions: * Patient Education Provided * Reassurance * Counseling Provided - Discussed with Family/Patient * Family/Patient given opportunity to ask questions. * Family/Patient Verbalized Understanding. * Family/Patient informed will continue to monitor. * Surgery-risks, benefits, and alternatives were discussed with pt regarding operative intervention. Risks include but are not limited to pain, bleeding, scarring, infection, damage to nerves, arteries, veins, failure of procedure need for further procedures, nonunion, malunion, dislocation, loss of limb, heart attack, stroke and . Patient voiced understanding and wishes to proceed with operative intervention. * Elevation of Extremity * Patient/Parent to call or return with any abnormal changes * NSAIDS and ICE application for continued pain and swelling. * Apply Ice as Instructed * Orders: * Medications:. (The patient was given Celebrex 200 mg, [place] 10/325 mg and will take Aspirin 81 mg (OTC)) * Surgery: The patient is scheduled for a Left MEG to be performed on 02/09/18 at [facility]. The patient was given all post-operative medications and instructions today. He is to take all medications post-operatively. The patient voiced their understanding. The patient will call with any questions. * Total Hip Replacement of the left hip * At this point, I feel that this patient would be an excellent candidate for a total hip replacement done through an anterior approach. The patient has failed non-operative care and continues to have unacceptable symptoms. We discussed the treatment options and alternatives and the risks and benefits of surgery in great detail. I explained the possible complications of surgery which include, but are not limited to neurovascular injury, infection, persistent pain, stiffness, leg length discrepancy, dislocation, failure of hardware, bleeding with the possibility of transfusion, deep venous thrombosis, pulmonary embolus, thigh numbness and component wear and loosening requiring revision. Additionally we discussed anesthesia related complications which will be discussed in greater detail with the anesthesia team before surgery. The patient voiced their understanding of the surgical plan and potential complications and wishes to proceed with surgery. Instructions Name Dates Details Instructions not documented Encounters Appointment; MC DRISCOLL M.D. Encounter Diagnosis: Problem not documented On: 01-Jan-2018 9:00
--- OUTSIDE RECORDS SUMMARY | 2018-09-23 20:08 | XMS REPORT ---
[facility] Address Unknown Phone Unavailable Care Team Providers Care Spinning Doffer Name Role Phone BECKY FRITZ PP Unavailable RAJWINDER VALENTINO Unavailable Unavailable Lory FRITZ Unavailable Unavailable Problems This patient has no known problems. Allergies, Adverse Reactions, Alerts This patient has no known allergies or adverse reactions. Medications This patient has no known medications. Encounters Start Date/Time End Date/Time Encounter Type Admission Type Attending Clinicians Care Facility Care Department Encounter ID 2018-10-12 00:00:00 2018-10-12 00:00:00 Outpatient [facility] [id number] 2018-09-09 10:53:16 2018-09-09 10:53:16 Outpatient [facility] [id number] 2018-07-21 13:13:33 2018-07-21 13:13:33 Outpatient [facility] [id number] 2017-12-18 19:26:00 2017-12-18 19:26:00 Outpatient C FAMILIA FRITZ [facility] [id number] 2017-10-22 10:06:13 2017-10-22 10:06:13 Outpatient [facility] [id number] 2017-10-06 00:00:00 2017-10-06 00:00:00 Outpatient [facility] [id number] 2017-09-24 09:31:31 2017-09-24 09:31:31 Outpatient [facility] [id number] 2017-09-14 13:58:21 2017-09-14 13:58:21 Outpatient [facility] [id number] 2017-09-14 00:00:00 2017-09-14 00:00:00 Outpatient [facility] [id number] 2017-09-07 08:10:14 2017-09-07 08:10:14 Outpatient [facility] [id number] 2017-08-17 00:00:00 2017-08-17 00:00:00 Outpatient [facility] [id number] 2017-08-11 09:56:19 2017-08-11 09:56:19 Outpatient [facility] [id number] 2017-07-31 07:34:24 2017-07-31 07:34:24 Outpatient [facility] [id number] 2017-07-27 15:56:15 2017-07-27 15:56:15 Outpatient [facility] [id number] 2017-07-27 13:51:40 2017-07-27 13:51:40 Outpatient [facility] [id number] 2017-07-27 10:21:06 2017-07-27 10:21:06 Outpatient [facility] [id number] 2017-07-27 09:36:12 2017-07-27 09:36:12 Outpatient [facility] [id number] 2017-07-06 10:15:01 2017-07-06 10:15:01 Outpatient [facility] [id number] 2017-06-19 10:20:27 2017-06-19 10:20:27 Outpatient [facility] [id number] 2017-06-16 09:03:26 2017-06-16 09:03:26 Outpatient [facility] [id number] 2017-06-16 07:54:04 2017-06-16 07:54:04 Outpatient [facility] [id number] 2017-06-03 00:00:00 2017-06-03 00:00:00 Outpatient [facility] [id number] 2017-06-02 00:00:00 2017-06-02 00:00:00 Outpatient [facility] [id number] 2017-05-25 00:00:00 2017-05-25 00:00:00 Outpatient [facility] [id number] 2017-05-15 07:30:07 2017-05-15 07:30:07 Outpatient [facility] [id number] 2017-05-14 16:27:29 2017-05-14 16:27:29 Outpatient [facility] [id number] 2017-05-14 14:20:58 2017-05-14 14:20:58 Outpatient [facility] [id number] 2017-05-04 07:37:34 2017-05-04 07:37:34 Outpatient [facility] [id number] 2017-05-04 07:31:46 2017-05-04 07:31:46 Outpatient [facility] [id number] 2017-04-30 00:00:00 2017-04-30 00:00:00 Outpatient [facility] [id number] 2017-04-23 00:00:00 2017-04-23 00:00:00 Outpatient [facility] [id number] 2017-04-01 00:00:00 2017-04-01 00:00:00 Outpatient [facility] [id number] 2017-03-31 08:12:04 2017-03-31 08:12:04 Outpatient [facility] [id number] 2017-02-19 09:12:00 2017-02-19 09:12:00 Outpatient [facility] [id number] Results Test Description Test Time Test Comments Text Results Atomic Results Result Comments TISSUE EXAM 2018-08-18 10:23:00 Surgical Pathology Report Case: [id number] Authorizing Provider: Rajwinder Valentino MD Collected: 08/16/2018 1403 Ord ering Location: [facility] Received: 08/16/2018 1835 SERVICES Pathologist: Lindsey Ortez MD Specimen: Polyp, Colon - Rectum A. RECTUM POLYP, BIOPSY: - INFLAMMATORY POLYP WITH GRANULATION TISSUE, SURFACE ULCERATIONS AND HYPERPLASTIC CHANGES ( see comment) - NEGATIVE FOR DYSPLASIA OR VIRAL CYTOPATHIC EFFECT Signing Pathologist Direct Phone Line: [phone] signed by Lindsey Ortez MD on 08/18/2018 at 10:23 AM These polyp can be seen in Crohn's disease, ulcerative colitis but they also occur in association with other disorders, such as ischemic colitis, necrotizing enterocolitis, and infectious colitis, diverticulitis, hemorrhoids and they commonly form at the edges of intestinal ulcers and mucosal anastomosi s. Clinical correlation recommended.Endoscopic report reviewed./[id number] for colon cancerRectum colon polypThe specimen is received in a formalin-filled container and labeled with the patient's information and labeled "rectum colon polyp" and consists of a 0.3 cm fragment of barrera-white soft tissue, submitted entirely A1. CG/pl Performed POCT-GLUCOSE METER 2018-08-16 13:03:00 POC-GLUCOSE METER (BEAKER) (test ihvm=8226) 138 mg/dL 70-110 TESTED AT [place] [id number] [facility] [address] Glycosylated [id number] 21:40:00* Test Item Value Reference Range Comments HBA1c (test code=HBA1C) 6.0 % 4.8-5.9 Ferritin, [id number] 21:30:00* Test Item Value Reference Range Comments Ferritin (test code=FERR) 25 ng/mL 13-150 TIBC and [id number] 21:23:00* Test Item Value Reference Range Comments Iron (test code=FE) 44 ug/dL 37-145 UIBC (test code=UIBC) 358 ug/dL 112-346 TIBC (test code=TIBC) 402 ug/dL 149-491 % Saturation (test code=PSAT) 11 % 20-50 CBC with [id number] 19:46:00* Test Item Value Reference Range Comments WBC (test code=WBC) 5.0 K/cumm 4.4-10.5 RBC (test code=RBC) 3.94 M/cumm 3.75-5.20 Hemoglobin (test code=HGB) 10.1 gm/dL 12.2-14.8 Hematocrit (test code=HCT) 34.2 % 36.5-44.4 MCV (test code=MCV) 86.8 fL 80-100 MCH (test code=MCH) 25.7 pg 27.0-32.5 MCHC (test code=MCHC) 29.7 g/dL 32.0-37.5 RDW (test code=RDW) 16.9 % 11.5-14.5 Platelet Count (test code=PLTCT) 200 K/cumm 140-440 MPV (test code=MPV) 11.4 fL Diff Method (test code=DIFFM) Auto Neutrophil (test code=NEUT) 69.7 % 36-70 Lymphocyte (test code=LYMPH) 20.5 % 12-44 Monocyte (test code=MONO) 6.8 % 0-11 Eosinophil (test code=EOS) 2.2 % 0-7 Basophil (test code=BASO) 0.8 % 0-2 Neutro Abs (test code=ANEUT) 3.5 K/cumm 1.6-7.4 Lymph Abs (test code=ALYMPH) 1.0 K/cumm 0.5-4.6 [place] Abs (test code=AMONO) 0.3 K/cumm 0.0-1.2 Eos Abs (test code=AEOS) 0.11 K/cumm 0.00-0.74 Baso Abs (test code=ABASO) 0.0 K/cumm 0.00-0.21 Hypochromic (test code=HYPO) Slight
[2018-09-23] MEDS ORDERED: SODIUM CHLORIDE 0.9% 1000ML 1,000 ML IV STA (20:46)
[2018-09-23 20:59] LABS: BASOPHILS % 0.3 % (0.0-1.0); EOSINOPHILS % 0.3 % (0.0-6.0); HEMATOCRIT 33.5 % (34.2-44.1); HEMOGLOBIN 10.8 g/dL (12.0-16.0); LYMPHOCYTES % 10.1 % (18.0-39.1); MEAN CORPUSCULAR HEMOGLOBIN 27.6 pg (28-32); MEAN CORPUSCULAR HGB CONC 32.2 g/dL (31-35); MEAN CORPUSCULAR VOLUME 85.5 fL (81-99); MONOCYTES # (AUTO) 0.7 (0.2-0.8); MONOCYTES % 6.5 % (4.4-11.3); NEUTROPHILS # (AUTO) 8.2 (2.1-6.9); NEUTROPHILS % 82.5 % (38.7-80.0); PLATELET COUNT 204 x10e3/uL (140-360); RED BLOOD COUNT 3.92 x10e6/uL (3.6-5.1); RED CELL DISTRIBUTION WIDTH 14.4 % (11.7-14.4)
[2018-09-23] MEDS ORDERED: ONDANSETRON HCL INJ 2 MG/ML VIAL IV NR (21:00)
[2018-09-23] MEDS ORDERED: MORPHINE SULFATE INJ 4 MG/ML INJ IV NR (21:00)
[2018-09-23] MEDS ORDERED: DIATRIZOATE MEGL/DIATRIZOA SOD 30 ML BTL PO ONE (21:01)
[2018-09-23 21:05] LABS: BILIRUBIN,URINE NEGATIVE (NEGATIVE); CLARITY,URINE CLEAR (CLEAR); COLOR,URINE YELLOW (YELLOW); KETONES,URINE NEGATIVE (NEGATIVE); LEUKOCYTE ESTERASE ,URINE NEGATIVE (NEGATIVE); NITRITE,URINE NEGATIVE (NEGATIVE); PROTEIN,URINE DIPSTICK NEGATIVE (NEGATIVE); URINE UROBILINOGEN 0.2 mg/dL (0.2 - 1)
[2018-09-23 21:16] LABS: AMORPHOUS SEDIMENT,URINE FEW (FEW); BACTERIA,URINE MANY /HPF
[2018-09-23 21:18] LABS: ALBUMIN 4.1 g/dL (3.5-5.0); ALBUMIN/GLOBULIN RATIO 1.1 (0.8-2.0); ANION GAP 17.6 mmol/L (8-16); CALCIUM 9.9 mg/dL (8.4-10.2); CREATININE, SERUM 1.31 mg/dL (0.57-1.11); POTASSIUM 3.6 mmol/L (3.5-5.1)
--- NOTE | 2018-09-23 22:32 | Diagnostic Imaging Report ---
EXAM: CT ABDOMEN/PELVIS W DATE: 09/23/2018 8:46 PM INDICATION: Dominant pain, diverticulitis COMPARISON: None TECHNIQUE: The abdomen and pelvis were scanned using a multidetector helical scanner. Coronal and sagittal reformations were obtained. CT low dose techniques were utilized, as applicable. IV Contrast: 100 ml Isovue 300/370 FINDINGS: LOWER THORAX: No consolidations LIVER/BILIARY: No masses. No ductal dilatation. GALLBLADDER: Unremarkable SPLEEN: Unremarkable PANCREAS: Unremarkable ADRENALS: No nodules KIDNEYS: No suspicious renal masses. No hydronephrosis. GI TRACT: No wall thickening or evidence of obstruction. Diverticulosis without acute inflammatory changes. Normal appendix. VESSELS: Mild atherosclerotic changes. 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 PERITONEUM/RETROPERITONEUM: No free air or fluid LYMPH NODES: No lymphadenopathy REPRODUCTIVE ORGANS/BLADDER: Limited by streak artifact from hip arthroplasty. There is a fluid attenuation structure in the region of the left ovary/adnexa containing a focus of gas measuring 5.2 x 3.5 cm which abuts the sigmoid colon. Minimal adjacent inflammatory change. SOFT TISSUES: Small fat-containing umbilical hernia. BONES: Partially visualized left hip arthroplasty. Multilevel degenerative changes with grade 1 anterolisthesis of L4 over L5. IMPRESSION: Left adnexal fluid collection/cystic structure containing gas, favored to reflect an abscess or fistulization related to prior sigmoid diverticulitis. Comparison with priors would be helpful. Consider follow-up ultrasound to assess the ovary given left-sided pain. Discussed with Physician: MIKE SANDOVAL MD at 10:38 PM on 09/23/2018. Signed by: Dr Gladis Medrano MD on 09/23/2018 10:38 PM
[2018-09-23] MEDS ORDERED: PIPER-TAZ 3.375 GM 50 ML IV STA (23:00)
[2018-09-23] MEDS ORDERED: MORPHINE SULFATE 2 MG/ML SYR IV PRN (23:00)
[2018-09-23] MEDS ORDERED: METRONIDAZOLE 500MG/NS 100ML 100 ML IV STA (23:00)
[2018-09-23] MEDS ORDERED: KETOROLAC TROMETHAMINE 30 MG/ML VIAL ONE (23:06)
[2018-09-23] MEDS ORDERED: KETOROLAC TROMETHAMINE 30 MG/ML VIAL IV STA (23:10)
[2018-09-23] MEDS ORDERED: ATORVASTATIN CA10 MG PO (23:25)
[2018-09-23] MEDS ORDERED: AMLODIPINE BESY10 MG PO (23:25)
[2018-09-23] MEDS ORDERED: CALTRATE 600 W1 EACH PO (23:25)
[2018-09-23] MEDS ORDERED: OMEPRAZOLE40 MG PO (23:25)
[2018-09-23] MEDS ORDERED: LOSARTAN POTASS50 MG PO (23:25)
[2018-09-23] MEDS ORDERED: MUPIROCIN5 GM (23:25)
--- OUTSIDE RECORDS SUMMARY | 2018-09-23 23:32 | XMS REPORT | Clinical Summary ---
Author Author [facility] Organization [facility] Address Unknown Phone Unavailable Care Team Providers Care Elevator Service Mechanic Name Role Phone Chen Orourke PCP Unavailable [...] 20 MG tablet mouth daily. 09/20/2018 Discontinued eztortu-stajzrilhfucz-ibk Take 1 tablet 0 feine (EXCEDRIN MIGRAINE) [...] Care Team Description Date Type Specialty Resource, [facility] Preadmit Phone Arrived 09/20/2018 Hospital Pre-Admission Testing Encounter Stephane Kee MD Allergic reaction, initial encounter (Primary Dx); Rash; Cellulitis, unspecified cellulitis site 08/19/2018 Emergency Emergency Medicine 08/19/2018 Travel Chantell Franks MD 08/16/2018 Anesthesia Event Rajwinder Valentino MD COLONOSCOPY,POLYPECTOMY 08/16/2018 Surgery Rajwinder Valentino MD 08/16/2018 Hospital Encounter Resource, [facility] Preadmit Phone 08/09/2018 Hospital Pre-Admission Testing Encounter [...] Taken Vital Sign Reading 08/19/2018 3:26 PM NUT TIGHTENER Blood Pressure 129/69 08/19/2018 3:26 PM NUT TIGHTENER Pulse 83 08/19/2018 3:26 PM NUT TIGHTENER Temperature 37.1 C (98.8 F) 08/19/2018 3:26 PM NUT TIGHTENER Respiratory Rate 18 08/19/2018 3:26 PM NUT TIGHTENER Oxygen Saturation 99% - Inhaled Oxygen - Concentration 09/20/2018 9:46 AM NUT TIGHTENER Weight 93.9 kg (207 lb) 09/20/2018 9:46 AM NUT TIGHTENER Height 154.9 cm (5' 1") 09/20/2018 9:46 AM NUT TIGHTENER Body Mass Index 39.11 Plan of Treatment Care Team Description Date Type Specialty Florin Spain MD [address] [address] 10/01/2018 Hospital Gastroenterology Encounter Florin Spain MD [address] [facility] [place] [address] UPPER ENDOSCOPY 10/01/2018 Surgery Gastroenterology Procedures Comments Procedure Name Priority Date/Time Associated Diagnosis REPORT OF PROCEDURE - 08/16/2018 ENDOSCOPY URL 2:25 PM NUT TIGHTENER TISSUE EXAM AP Routine 08/16/2018 2:03 PM NUT TIGHTENER POCT-GLUCOSE METER Routine 08/16/2018 1:01 PM NUT TIGHTENER COLONOSCOPY,POLYPECTOMY 08/16/2018 Screen for colon cancer 12:25 PM NUT TIGHTENER after 09/22/2017 Results * REPORT OF PROCEDURE - ENDOSCOPY URL (08/16/2018 2:25 PM NUT TIGHTENER) Narrative Performed At * Tissue Exam (08/16/2018 2:03 PM NUT TIGHTENER) Case Report Surgical Pathology [facility] Report [facility] Case: [id number] Authorizing Provider:Rajwinder Valentino MDCollecte d: 08/16/2018 1403 Ordering Location: [facility] Received: 08/16/2018 1832 SERVICES Pathologist: Lindsey Ortez MD Specimen:Polyp, Colon - Rectum DIAGNOSIS A. RECTUM POLYP, BIOPSY: [facility] - INFLAMMATORY POLYP WITH [facility] GRANULATION TISSUE, SURFACE ULCERATIONS AND HYPERPLASTIC CHANGES ( see comment) - NEGATIVE FOR DYSPLASIA OR VIRAL CYTOPATHIC EFFECT Signing Pathologist Direct Phone Line: [phone] COMMENT These polyp can be seen in [facility] Crohn's disease, ulcerative [facility] colitis but they also occur in association with other disorders, such as ischemic colitis, necrotizing enterocolitis, and infectious colitis, diverticulitis, hemorrhoids and they commonly form at the edges of intestinal ulcers and mucosal anastomosis. Clinical correlation recommended.Endoscopic report reviewed. CPT Code(s) SJ/ew [facility] 56651 x1 [facility] CLINICAL HISTORY Screening for colon cancer [facility] SPECIMEN SOURCE Rectum colon polyp [facility] GROSS DESCRIPTION The specimen is received in a [facility] formalin-filled container and [facility] labeled with the patient's information and labeled "rectum colon polyp" and consists of a 0.3 cm fragment of barrera-white soft tissue, submitted entirely A1. CG/pl MICROSCOPIC DESCRIPTION Performed [facility] Specimen Tissue - Polyp, Colon - Rectum Performing Organization Address City/[facility] Phone [facility] [address] [place] [address] [facility] * POC-Glucose meter (08/16/2018 1:01 PM NUT TIGHTENER) POC-Glucose Meter 138 (H)Comment: TESTED AT 70 - 110 mg/dL [facility] [address] [facility] [address] [facility] [address] Specimen Blood Performing Organization Address City/[facility] Phone Number [facility] [address] [place] [address] [facility] after 09/22/2017 Insurance Payer Benefit Subscriber ID Type Phone Address Plan / Group [facility] xxxxxxxxxxxx HMO/POS [phone] [facility] CHOICE EXCHANGE
[2018-09-24] VITALS (10 sets, daily range): BP systolic 105–127; BP diastolic 52–59
--- NOTE | 2018-09-24 00:25 | NUR ---
PT ARRIVED TO UNIT ROOM 102 VIA STRETCHER AT THIS TIME.PT AMBULATED TO BED FROM STRETCHER WITH STAND BY ASSIST.PT AAO X 3. NO S/S OF ACUTE DISTRESS NOTED.RESPIRATIONS EVEN/NON LABORED.LEFT AC IV INTACT AND PATENT.INSTRUCTED PT TO CALL FOR ASSISTANCE NEEDED,PT VERBALIZED UNDERSTANDING.CALL LIGHT WITHIN EASY REACH.
[2018-09-24] MEDS ORDERED: SODIUM CHLORIDE 0.9% 50ML 50 ML ONE (00:51)
[2018-09-24] MEDS ORDERED: IOPAMIDOL 370 MG/ML 200 ML INFUS..BTL INJ ONE (00:51)
--- NOTE | 2018-09-24 01:07 | Diagnostic Imaging Report ---
EXAM: US TRANSVAGINAL INDICATION: Ovarian abscess? COMPARISON: Recent CT TECHNIQUE: Grayscale transverse and sagittal transabdominal and transvaginal images were obtained of the pelvis. Transvaginal images were necessary to better assess anatomic detail. The ovaries were examined with grayscale, color Doppler, and spectral waveform analysis. FINDINGS: Uterus Orientation: Normal Size: 8.3 x 4.1 x 5.3 cm, normal Mass: Heterogeneous appearance Endometrium: Thickness: 0.4 cm, Normal thickness. Appearance: Poorly visualized due to underlying uterine heterogeneity. Right ovary: Not well-visualized due to overlying bowel gas and body habitus. Along the right superior aspect of the uterus there is a avascular heterogeneous collection measuring 4 x 3 cm with echogenic focus likely corresponding to gas seen on CT. The right ovary appears to be adjacent and separate from this measuring 2 cm. Left ovary: Not visualized. Limited due to overlying bowel gas and body habitus. Adnexa: Poorly assessed Cul-de-sac: No free fluid IMPRESSION: Suboptimal examination due to poor visualization from overlying bowel gas and body habitus 4 cm fluid and gas collection along the right superior aspect of the uterus/right adnexa, seen on CT, likely related to prior diverticulitis (fistula w/ contained abscess/collection). This appears to be separate from the right ovary, although poorly visualized. Signed by: Dr Gladis Mderano MD on 09/24/2018 1:03 AM
[2018-09-24] MEDS: ONDANSETRON HCL INJ 2 MG/ML VIAL IV PRN ×4 (02:04→21:19)
[2018-09-24] MEDS ORDERED: METFORMIN HCL1000 MG PO (07:24)
--- NOTE | 2018-09-24 07:24 | NUR ---
REPORT GIVEN TO ONCOMING NURSE,WALKING ROUNDS MADE.PT RESTING IN BED WITH NO S/S OF DISTRESS NOTED.
[2018-09-24] MEDS ORDERED: HYDRALAZINE HCL 20 MG/ML VIAL IV PRN (07:30)
[2018-09-24] MEDS ORDERED: DEXTROSE 50% SYRINGE 50 ML IV PRN (08:00)
[2018-09-24] MEDS: MORPHINE SULFATE INJ 4 MG/ML INJ IV PRN ×3 (08:54→21:22)
[2018-09-24] MEDS: VANCOMYCIN 1GM/NS 250 ML 250 ML IV SCH ×2 (08:54→20:52)
[2018-09-24] MEDS: ACETAMINOPHEN 325 MG TAB PO PRN ×2 (08:54→17:15)
[2018-09-24] MEDS: SODIUM CHLORIDE 0.9% 1000ML 1,000 ML IV SCH (08:54)
[2018-09-24] MEDS: PANTOPRAZOLE 40 MG 10ML VIAL IV SCH (08:54)
--- NOTE | 2018-09-24 08:54 | NUR ---
ASSESSMENT COMPLETE NO DISTRESS NOTED, UPDATED ON POC VOICED UNDERSTANDING, CO PAIN TO LLQ WITH RADIATION TO MID ABDOMEN, MEDICATED WITH PRN MEDS, IVF INFUSING TO R AC 20G NO SS OF INFILTRATION NOTED NO OTHER CO VOICED CALL LIGHT IN REACH FAMILY AT BEDSIDE WILL CONTINUE TO MONITOR
[2018-09-24] MEDS: INSULIN LISPRO 100 UNIT/1 ML 3ML VIAL SQ SCH ×3 (11:30→21:00)
[2018-09-24] MEDS: PIPER-TAZ 3.375 GM 50 ML IV SCH ×3 (11:49→23:54)
[2018-09-24 18:59] LABS: INR 0.94; PROTHROMBIN TIME 13.4 seconds (11.9-14.5)
[2018-09-24] MEDS: LOSARTAN POTASSIUM 25 MG TAB PO SCH (21:00)
[2018-09-24] MEDS: ATORVASTATIN 10 MG TAB PO SCH (21:21)
[2018-09-25] VITALS (23 sets, daily range): BP systolic 82–181; BP diastolic 45–110
[2018-09-25] MEDS: ACETAMINOPHEN 325 MG TAB PO PRN ×3 (01:00→13:06)
[2018-09-25] MEDS: SODIUM CHLORIDE 0.9% 1000ML 1,000 ML IV SCH (04:53)
[2018-09-25 05:45] LABS: BASOPHILS % 0.2 % (0.0-1.0); EOSINOPHILS # (AUTO) 0.1 (0.0-0.4); EOSINOPHILS % 0.5 % (0.0-6.0); HEMATOCRIT 27.2 % (34.2-44.1); HEMOGLOBIN 8.7 g/dL (12.0-16.0); LYMPHOCYTES # (AUTO) 0.9 (1.0-3.2); LYMPHOCYTES % 8.6 % (18.0-39.1); MEAN CORPUSCULAR HEMOGLOBIN 28.1 pg (28-32); MEAN CORPUSCULAR VOLUME 87.7 fL (81-99); MONOCYTES # (AUTO) 0.8 (0.2-0.8); MONOCYTES % 7.3 % (4.4-11.3); NEUTROPHILS # (AUTO) 9.1 (2.1-6.9); NEUTROPHILS % 82.9 % (38.7-80.0); PLATELET COUNT 162 x10e3/uL (140-360); RED CELL DISTRIBUTION WIDTH 14.5 % (11.7-14.4)
[2018-09-25] MEDS: PIPER-TAZ 3.375 GM 50 ML IV SCH ×3 (05:52→17:00)
[2018-09-25 06:06] LABS: ANION GAP 13.2 mmol/L (8-16); CALCIUM 8.7 mg/dL (8.4-10.2); CREATININE, SERUM 0.99 mg/dL (0.57-1.11); MAGNESIUM 1.7 MG/DL (1.3-2.1); POTASSIUM 4.2 mmol/L (3.5-5.1)
[2018-09-25 06:32] LABS: FREE T4 (FREE THYROXINE) 0.89 ng/dL (0.9-1.8); THYROID STIMULATING HORMONE 0.794 uIU/mL (0.350-4.940)
--- NOTE | 2018-09-25 07:07 | NUR ---
REPORT GIVEN TO ONCOMING NURSE.WALKING ROUNDS MADE.PT RESTING IN BED WITH NO S/S OF DISTRESS.
[2018-09-25] MEDS: INSULIN LISPRO 100 UNIT/1 ML 3ML VIAL SQ SCH ×4 (07:30→21:05)
[2018-09-25] MEDS: PANTOPRAZOLE 40 MG 10ML VIAL IV SCH (08:30)
[2018-09-25] MEDS: VANCOMYCIN 1GM/NS 250 ML 250 ML IV SCH ×2 (08:30→20:25)
--- NOTE | 2018-09-25 08:30 | NUR ---
ASSESSMENT COMPLETE NO DISTRESS NOTED, CO HEADACHE 04/13, MEDICATED WITH PRN MEDS, IVF INFUSING TO L AC 20G NO SS OF INFILTRATION NOTED, NO OTHER CO VOICED CALL LIGHT IN REACH WILL CONTINUE OT MONITOR
[2018-09-25] MEDS ORDERED: LORAZEPAM INJ 2 MG/ML VIAL IV PRN (10:00)
[2018-09-25] MEDS ORDERED: MIDAZOLAM HCL 2 MG/2 ML VIAL ONE ×2 (11:49→12:29)
[2018-09-25] MEDS ORDERED: FENTANYL CITRATE/PF 100MCG/2 ML INJ ONE ×2 (11:49→12:29)
--- NOTE | 2018-09-25 13:24 | Diagnostic Imaging Report ---
Date and Time: 09/25/2018 Procedure: CT-guided drainage of left lower quadrant fluid collection turner machine operator: Dr. Max Pre-operative diagnosis: Left lower quadrant fluid collection Post-operative diagnosis: Left lower quadrant abscess Conscious Sedation: Versed 2 mg and Fentanyl 150 mcg. The patient's heart rate and pulse oximetry were continuously monitored by the interventional radiology nurse. Blood pressure was monitored at 5 minute intervals. Total intraservice time for sedation: 50 minutes Additional Medications: Lidocaine 1% for local anesthesia Contrast used: None Estimated blood loss: Minimal (less than 10 cc) Blood products administered: None Specimens: 20 cc pus submitted for microbiologic analysis Implants: 10 [place]ib[place] locking loop all purpose drainage catheter Condition at completion: Stable Disposition: Radiology holding DISCUSSION: Informed consent was obtained and documented in the medical record after discussion of risks and benefits. The patient was placed in the supine position on the CT couch and a marker grid was placed over the skin of the left lower quadrant. Limited CT of the pelvis was performed, confirming presence of a left lower quadrant fluid collection. A suitable percutaneous approach between the sigmoid colon and more medial loops of small bowel was identified. The overlying skin was prepped and draped in the standard sterile fashion. 1% lidocaine was infiltrated into the skin and subcutaneous tissues for local anesthesia. Then, under intermittent CT guidance, an 18-gauge, 20 cm needle was advanced into the fluid collection. A 0.0 3 5-in. Amplatz Super Stiff wire was advanced through the needle and coiled within the fluid collection, with confirmation of wire position by limited CT. The needle was removed over the wire and the tract was dilated. Then a 10 [place] locking loop all purpose drainage catheter was advanced over the wire, which was then removed. Final CT images show the locking loop of the catheter within the fluid collection. 20 cc purulent aspirate were obtained and specimen was submitted to the lab for microbiologic analysis. The catheter was then flushed with sterile saline and connected to gravity drainage. The catheter was secured to the skin with monofilament nylon suture and a sterile dressing was applied. The patient tolerated the procedure well without immediate complication. FINDINGS: Left lower quadrant abscess. IMPRESSION: Successful CT-guided percutaneous drainage of a left lower quadrant abscess by an anterior approach. 20 cc purulent aspirate were obtained and submitted for microbiologic analysis. The catheter should remain to gravity drainage. Orders were written to flush and aspirate the catheter with 10 cc sterile saline every shift and 2 record drain output every shift. Signed by: Dr. Richard Max M.D. on 09/25/2018 1:21 PM
[2018-09-25] MEDS ORDERED: ONDANSETRON HCL INJ 2 MG/ML VIAL ONE (13:48)
[2018-09-25] MEDS: ONDANSETRON HCL INJ 2 MG/ML VIAL IV PRN (13:49)
--- NOTE | 2018-09-25 14:00 | NUR ---
RETURNED TO , AAOX3 NO DISTRESS NOTED, VS STABLE 100.1, 110/56, 106, O2 @ 2L NC, PT MEDICATED WITH PRN TYLENOL PRIOR TO RETURN TO ROOM FOR TEMP OF 101, BLANKETS REMOVED FROM PATIENT, TEMPERATURE LOWERED IN RM, IVF INFUSING TO L FA 20G NO SS OF INFILTRATION NOTED, DSG TO ABDOMEN C/D/I, WITH DRAINAGE BAG TO GRAVITY NOTED, NO OTHER CO VOICED CALL LIGHT IN REACH WILL CONTINUE TO MONITOR
--- NOTE | 2018-09-25 15:30 | NUR ---
NO DISTRESS NOTED, SCANT AMOUNT OF DRAINAGE NOTED TO DRAINAGE BAG, DSG C/D/I, NO OTHER CO VOICED CALL LIGHT IN REACH WILL CONTINUE TO MONITOR
--- NOTE | 2018-09-25 15:38 | Consultation ---
DATE OF CONSULTATION: September 25, 2018 REFERRING PHYSICIAN: Dr. Roberts. HISTORY OF PRESENT ILLNESS: Patient is a 62-year-old female who presented with complaints of left groin and left lower abdomen abdominal pain. She says the pain started about 2 weeks ago, became severe and that she felt like something popped and her pain became less. She has not had any nausea or vomiting. She has been having bowel movements. CT of the abdomen reveals abscess in the left adnexal area suggest possible bowel involvement. She had a colonoscopy done about a month ago and was told she had 1 polyp and diverticulosis. Patient has not had similar pains in the past. She has had fever. She has had no previous abdominal surgeries. PAST MEDICAL HISTORY: Significant for hypertension, hypercholesterolemia, and diabetes. ALLERGIES: SHE HAS ALLERGIES TO CLINDAMYCIN AND LATEX. MEDICATIONS AT HOME: Amlodipine, atorvastatin, calcium carbonate, losartan, metformin, mupirocin, and Prilosec. PAST SURGICAL HISTORY: As stated above. She has had hip replacement and foot surgery. Does not admit to previous abdominal surgery. FAMILY HISTORY: Noncontributory. SOCIAL HISTORY: The patient does not smoke cigarettes or drink alcohol. REVIEW OF SYSTEMS: As stated above, otherwise was negative. PHYSICAL EXAMINATION GENERAL: The patient is awake and alert, in no distress. VITAL SIGNS: Significant for low-grade fever. Temperature 100.9 yesterday, 99.8 today, otherwise are normal. HEENT: Reveals no scleral icterus. NECK: Has no masses. LUNGS: Equal breath sounds are clear bilaterally. CARDIAC: Regular rate and rhythm with no murmur. ABDOMEN: Tender in the left lower quadrant and left groin area. There is no distention. No mass. No definite signs of peritonitis. There is no organomegaly. EXTREMITIES: No edema. Peripheral pulses are palpable. NEUROLOGIC: Intact. LABORATORY TESTS: White blood cell count today is 10.9, is 9.9 yesterday; hemoglobin today is 8.7; hematocrit 27.2. Chemistries are essentially normal. CT of the abdomen is as started above. Transvaginal ultrasound also revealed left adnexal fluid collection. ASSESSMENT AND PLAN: A 62-year-old female with left adnexal abscess likely related to diverticular disease. She is to undergo CT-guided drainage today and recommend continue the patient on IV antibiotics. There are no signs of peritonitis and acute surgical abnormality. Would require immediate surgical intervention. Thank you for asking me to see Ms. North. Job#: [id number]
[2018-09-25] MEDS: HYDROCODONE/APAP 5MG-325MG TAB PO PRN ×2 (16:50→23:04)
--- NOTE | 2018-09-25 17:45 | NUR ---
PT UP TO BATHROOM WITH ASSISTANCE, DRAINAGE BAG TO ABDOMEN DRAINING RED BLOOD WITH CLOTS NOTED, PT ASSISTED BACK TO BED, SPOKE WITH RADIOLOGIST DR GEORGE RE: DRAINAGE BAG FINDINGS, INFORMED NURSE TO IRRIGATE TUBE, CHANGE BAG AND TO MONITOR PT. 100CC OF RED BLOOD EMPTIED FROM BAG. CALL LIGHT IN REACH WILL CONTINUE TO MONITOR
--- NOTE | 2018-09-25 19:20 | NUR ---
INFORMED DR SAMSON OF BLOOD IN DRAINAGE BAG AND INTERVENTIONS TAKEN (FLUSHED TUBE), INFORMED MD THAT RADIOLOGIST DR GEORGE IS AWARE AND NURSE INFORMED TO MONITOR PATIENT. NO FURTHER ORDERS GIVEN AT THIS TIME.
--- NOTE | 2018-09-25 20:50 | NUR ---
Pt with low blood pressure in 80s/40s. Pt denies any distress, no dizziness/lightheadedness, heart rate in 70-80s at this time. Called and spoke to Dr. Roberts. Order received for 1.0L bolus x1 at this time.
[2018-09-25] MEDS ORDERED: SODIUM CHLORIDE 0.9% 1000ML 1,000 ML IV ONE (21:00)
[2018-09-25] MEDS: LOSARTAN POTASSIUM 25 MG TAB PO SCH (21:00)
--- NOTE | 2018-09-25 21:00 | NUR ---
Minimal drainage from the drainage bag to abdomen. Small amount of serosanguineous drainage emptied from bag <10cc.
[2018-09-25] MEDS: ATORVASTATIN 10 MG TAB PO SCH (21:05)
--- NOTE | 2018-09-25 22:45 | NUR ---
Assisted pt to the restroom. Pt denies any dizziness. Pt ambulated to the restroom with steady gait and voided. Pt verbalizes pain to abdomen 6/10. Will medicate accordingly. Will continue to monitor.
[2018-09-26] VITALS (7 sets, daily range): BP systolic 92–126; BP diastolic 51–59
--- NOTE | 2018-09-26 00:30 | NUR ---
Pt c/o mild headache, asking for tylenol. Administered PRN tylenol.
[2018-09-26] MEDS: PIPER-TAZ 3.375 GM 50 ML IV SCH ×4 (00:32→18:00)
[2018-09-26] MEDS: ACETAMINOPHEN 325 MG TAB PO PRN (00:32)
[2018-09-26 04:40] LABS: BASOPHILS % 0.1 % (0.0-1.0); EOSINOPHILS # (AUTO) 0.1 (0.0-0.4); EOSINOPHILS % 1.1 % (0.0-6.0); HEMATOCRIT 23.9 % (34.2-44.1); HEMOGLOBIN 7.5 g/dL (12.0-16.0); LYMPHOCYTES # (AUTO) 0.9 (1.0-3.2); LYMPHOCYTES % 10.9 % (18.0-39.1); MEAN CORPUSCULAR HEMOGLOBIN 27.3 pg (28-32); MEAN CORPUSCULAR HGB CONC 31.4 g/dL (31-35); MEAN CORPUSCULAR VOLUME 86.9 fL (81-99); MONOCYTES # (AUTO) 0.6 (0.2-0.8); MONOCYTES % 6.8 % (4.4-11.3); NEUTROPHILS # (AUTO) 6.7 (2.1-6.9); NEUTROPHILS % 80.6 % (38.7-80.0); PLATELET COUNT 143 x10e3/uL (140-360); RED BLOOD COUNT 2.75 x10e6/uL (3.6-5.1); RED CELL DISTRIBUTION WIDTH 14.4 % (11.7-14.4)
[2018-09-26 04:58] LABS: ANION GAP 13.2 mmol/L (8-16); CALCIUM 8.3 mg/dL (8.4-10.2); CREATININE, SERUM 0.95 mg/dL (0.57-1.11); MAGNESIUM 1.6 MG/DL (1.3-2.1)
[2018-09-26 05:19] LABS: POTASSIUM 3.2 mmol/L (3.5-5.1)
--- NOTE | 2018-09-26 05:30 | NUR ---
Minimal drainage from the drainage tubing (less than 10cc) during shift. Tubing irrigated with 10cc of ns and pulled back. BP remaining in 90s/50s. HR stable in 60s. Pt denies any distress/discomfort/dizziness. Will continue to monitor.
[2018-09-26] MEDS: INSULIN LISPRO 100 UNIT/1 ML 3ML VIAL SQ SCH ×4 (07:30→21:35)
[2018-09-26] MEDS ORDERED: FUROSEMIDE INJ 10 MG/ML 2 ML VIAL IV ONE (08:45)
[2018-09-26] MEDS ORDERED: SODIUM CHLORIDE 0.9% 250ML 250 ML IV ONE (08:45)
[2018-09-26] MEDS ORDERED: POTASSIUM CHLORIDE 20 MEQ TAB CR PO ONE (09:30)
[2018-09-26] MEDS: OYST-CAL-D 500MG TABLET PO SCH ×2 (10:15→17:50)
[2018-09-26] MEDS: PANTOPRAZOLE 40 MG 10ML VIAL IV SCH (10:15)
[2018-09-26] MEDS: VANCOMYCIN 1GM/NS 250 ML 250 ML IV SCH ×2 (10:15→20:00)
--- NOTE | 2018-09-26 10:15 | NUR ---
ASSESSMENT COMPLETE NO DISTRESS NOTED,UPDATED ON POC VOICED UNDERSTANDING, DENIES PAIN AT THIS TIME, IVF INFUSING TO R FA 20G NO SS OF INFILTRATION NOTED, NO OTHER CO VOICED CALL LIGHT IN REACH WILL CONTINUE TO MONITOR
[2018-09-26] MEDS: ACETAMINOPHEN/ASPIRIN/CAFFEINE 1 EA TAB PO PRN (10:31)
[2018-09-26] MEDS: ACETAMINOPHEN/CODEINE 300MG - 30MG TAB PO PRN (12:50)
[2018-09-26] MEDS ORDERED: SODIUM CHLORIDE 0.9% 250ML 250 ML ONE (14:14)
--- NOTE | 2018-09-26 18:00 | NUR ---
PT RECEIVING BLOOD UNABLE TO ADMINISTER SCHEDULED ZOSYN AT THIS TIME.
[2018-09-26] MEDS: HYDROCODONE/APAP 5MG-325MG TAB PO PRN (18:07)
[2018-09-26] MEDS: ATORVASTATIN 10 MG TAB PO SCH (21:25)
--- NOTE | 2018-09-26 22:15 | NUR ---
Unit of blood started. Stayed with pt for 15 minutes. No signs of adverse reaction noted.
[2018-09-26] MEDS: SODIUM CHLORIDE 0.9% 1000ML 1,000 ML IV SCH ×2 (23:30)
[2018-09-27] VITALS (8 sets, daily range): BP systolic 106–131; BP diastolic 55–65
[2018-09-27] MEDS ORDERED: FUROSEMIDE INJ 10 MG/ML 4 ML VIAL ONE (00:46)
--- NOTE | 2018-09-27 01:10 | NUR ---
2nd unit of blood finished at this time. Vital signs stable. No signs of adverse reaction noted.
--- NOTE | 2018-09-27 01:15 | NUR ---
Administered 20mg of IV Lasix post transfusion per order. Pulled 40mg vial and discarded 20mg.
[2018-09-27] MEDS: PIPER-TAZ 3.375 GM 50 ML IV SCH ×4 (01:20→17:00)
[2018-09-27] MEDS: HYDROCODONE/APAP 5MG-325MG TAB PO PRN (02:40)
--- NOTE | 2018-09-27 03:00 | NUR ---
Irrigated pt's drainage tubing with 10cc of ns and aspirated back cloudy sero-sanguinous drainage with small particles. Drainage draining freely to gravity at this time.
[2018-09-27] MEDS: ACETAMINOPHEN/CODEINE 300MG - 30MG TAB PO PRN (05:38)
[2018-09-27 05:52] LABS: BASOPHILS % 0.5 % (0.0-1.0); EOSINOPHILS # (AUTO) 0.1 (0.0-0.4); EOSINOPHILS % 1.3 % (0.0-6.0); HEMATOCRIT 33.1 % (34.2-44.1); HEMOGLOBIN 10.8 g/dL (12.0-16.0); LYMPHOCYTES # (AUTO) 0.9 (1.0-3.2); LYMPHOCYTES % 11.4 % (18.0-39.1); MEAN CORPUSCULAR HEMOGLOBIN 28.1 pg (28-32); MEAN CORPUSCULAR HGB CONC 32.6 g/dL (31-35); MONOCYTES # (AUTO) 0.8 (0.2-0.8); MONOCYTES % 9.8 % (4.4-11.3); NEUTROPHILS % 76.5 % (38.7-80.0); PLATELET COUNT 168 x10e3/uL (140-360); RED BLOOD COUNT 3.85 x10e6/uL (3.6-5.1); RED CELL DISTRIBUTION WIDTH 14.6 % (11.7-14.4)
[2018-09-27 06:20] LABS: ANION GAP 13.5 mmol/L (8-16); BLOOD UREA NITROGEN 6 mg/dL (7-26); BUN/CREATININE RATIO 7 (6-25); CALCIUM 8.7 mg/dL (8.4-10.2); CARBON DIOXIDE 21 mmol/L (22-29); CHLORIDE 107 mmol/L (98-107); CREATININE, SERUM 0.88 mg/dL (0.57-1.11); EST GLOMERULAR FILTRATION RATE > 60 ML/MIN (60-); GLUCOSE 133 mg/dL (74-118); MAGNESIUM 2.3 MG/DL (1.3-2.1); POTASSIUM 3.5 mmol/L (3.5-5.1); SODIUM 138 mmol/L (136-145)
[2018-09-27 06:51] LABS: FOLATE 12.9 ng/mL (7.0-15.4)
[2018-09-27 06:54] LABS: FERRITIN 132.22 ng/mL (4.63-204.00)
--- NOTE | 2018-09-27 07:21 | NUR ---
PATIENT IS AWAKE AND IN STABLE CONDITION WITH NO S/S OF RESPIRATORY DISTRESS. NO PAIN VOICED. IV FLUIDS INFUSING. CALL LIGHT IS WITHIN REACH, INSTRUCTED TO CALL FOR ASSISTANCE NEEDED.
[2018-09-27] MEDS: INSULIN LISPRO 100 UNIT/1 ML 3ML VIAL SQ SCH ×4 (07:30→22:03)
[2018-09-27] MEDS: VANCOMYCIN 1GM/NS 250 ML 250 ML IV SCH ×2 (08:33→20:58)
[2018-09-27] MEDS: OYST-CAL-D 500MG TABLET PO SCH ×2 (08:33→16:46)
[2018-09-27] MEDS: PANTOPRAZOLE 40 MG 10ML VIAL IV SCH (08:33)
[2018-09-27] MEDS: METOCLOPRAMIDE HCL 10 MG/2ML VIAL IV SCH ×4 (08:33→20:58)
[2018-09-27] MEDS: SODIUM CHLORIDE 0.9% 1000ML 1,000 ML IV SCH ×2 (12:38→20:21)
[2018-09-27] MEDS: ACETAMINOPHEN 325 MG TAB PO PRN (16:56)
--- NOTE | 2018-09-27 19:23 | NUR ---
PATIENT IS IN STABLE CONDITION WITH NO S/S OF RESPIRATORY DISTRESS. NO PAIN VOICED. IV FLUIDS INFUSING. CALL LIGHT IS WITHIN REACH, INSTRUCTED TO CALL FOR ASSISTANCE NEEDED. REPORT GIVEN TO ONCOMING NURSE.
[2018-09-27] MEDS: ATORVASTATIN 10 MG TAB PO SCH (20:58)
[2018-09-28] VITALS (7 sets, daily range): BP systolic 120–144; BP diastolic 57–75
[2018-09-28] MEDS: PIPER-TAZ 3.375 GM 50 ML IV SCH ×4 (00:36→18:14)
[2018-09-28] MEDS: ACETAMINOPHEN 325 MG TAB PO PRN (01:40)
[2018-09-28 01:53] LABS: BASOPHILS % 0.4 % (0.0-1.0); EOSINOPHILS # (AUTO) 0.1 (0.0-0.4); EOSINOPHILS % 1.3 % (0.0-6.0); HEMATOCRIT 31.5 % (34.2-44.1); HEMOGLOBIN 10.5 g/dL (12.0-16.0); LYMPHOCYTES # (AUTO) 1.2 (1.0-3.2); MEAN CORPUSCULAR HEMOGLOBIN 27.8 pg (28-32); MEAN CORPUSCULAR HGB CONC 33.3 g/dL (31-35); MEAN CORPUSCULAR VOLUME 83.3 fL (81-99); MONOCYTES # (AUTO) 0.7 (0.2-0.8); MONOCYTES % 9.6 % (4.4-11.3); NEUTROPHILS # (AUTO) 5.2 (2.1-6.9); PLATELET COUNT 185 x10e3/uL (140-360); RED BLOOD COUNT 3.78 x10e6/uL (3.6-5.1); RED CELL DISTRIBUTION WIDTH 14.3 % (11.7-14.4)
[2018-09-28 02:08] LABS: ANION GAP 15.3 mmol/L (8-16); BLOOD UREA NITROGEN 6 mg/dL (7-26); BUN/CREATININE RATIO 7 (6-25); CALCIUM 8.8 mg/dL (8.4-10.2); CARBON DIOXIDE 22 mmol/L (22-29); CHLORIDE 107 mmol/L (98-107); CREATININE, SERUM 0.82 mg/dL (0.57-1.11); EST GLOMERULAR FILTRATION RATE > 60 ML/MIN (60-); GLUCOSE 95 mg/dL (74-118); MAGNESIUM 1.6 MG/DL (1.3-2.1); POTASSIUM 3.3 mmol/L (3.5-5.1); SODIUM 141 mmol/L (136-145)
[2018-09-28] MEDS ORDERED: POTASSIUM CHLORIDE 20 MEQ TAB CR PO STA (03:05)
[2018-09-28] MEDS: INSULIN LISPRO 100 UNIT/1 ML 3ML VIAL SQ SCH ×4 (07:30→21:50)
--- NOTE | 2018-09-28 07:42 | NUR ---
PATIENT IS ALERT AND IN STABLE CONDITION WITH NO S/S OF RESPIRATORY DISTRESS. NO PAIN VOICED. BED ALARM APPLIED. CALL LIGHT IS WITHIN REACH, PATIENT INSTRUCTED TO CALL FOR ASSISTANCE NEEDED.
--- NOTE | 2018-09-28 07:56 | NUR ---
RECEIVED CALL FROM LAB REGARDING CRITICAL VANCO TROUGH OF 19.6- ORDER PLACED TO HOLD MEDICATION IF >17. WILL HOLD CURRENT DOSE AND OBTAIN VANCO TROUGH ORDERED BEFORE THE NEXT DOSE. STOCK TAKER NOTIFIED OF VANCO TROUGH.
[2018-09-28] MEDS: VANCOMYCIN 1GM/NS 250 ML 250 ML IV SCH ×2 (08:00→20:36)
[2018-09-28] MEDS: METOCLOPRAMIDE HCL 10 MG/2ML VIAL IV SCH ×4 (08:12→21:51)
[2018-09-28] MEDS: PANTOPRAZOLE 40 MG 10ML VIAL IV SCH (08:12)
[2018-09-28] MEDS: OYST-CAL-D 500MG TABLET PO SCH ×2 (08:12→16:21)
[2018-09-28] MEDS: ACETAMINOPHEN/ASPIRIN/CAFFEINE 1 EA TAB PO PRN (16:21)
--- NOTE | 2018-09-28 19:19 | NUR ---
PATIENT IS IN STABLE CONDITION WITH NO S/S OF RESPIRATORY DISTRESS. NO PAIN VOICED. DRAIN CONNECTED TO LLQ AD IS INTACT. CALL LIGHT IS WITHIN REACH, INSTRUCTED TO CALL FOR ASSISTANCE NEEDED. REPORT GIVEN TO ONCOMING NURSE.
[2018-09-28] MEDS: ATORVASTATIN 10 MG TAB PO SCH (21:50)
[2018-09-29] VITALS (8 sets, daily range): BP systolic 104–148; BP diastolic 55–71
[2018-09-29] MEDS: PIPER-TAZ 3.375 GM 50 ML IV SCH ×4 (00:45→18:32)
[2018-09-29] MEDS: ACETAMINOPHEN/CODEINE 300MG - 30MG TAB PO PRN (01:02)
[2018-09-29 03:11] LABS: BASOPHILS % 0.6 % (0.0-1.0); EOSINOPHILS # (AUTO) 0.1 (0.0-0.4); EOSINOPHILS % 1.2 % (0.0-6.0); HEMATOCRIT 32.3 % (34.2-44.1); HEMOGLOBIN 10.7 g/dL (12.0-16.0); LYMPHOCYTES % 15.4 % (18.0-39.1); MEAN CORPUSCULAR HEMOGLOBIN 27.7 pg (28-32); MEAN CORPUSCULAR HGB CONC 33.1 g/dL (31-35); MEAN CORPUSCULAR VOLUME 83.7 fL (81-99); MONOCYTES # (AUTO) 0.5 (0.2-0.8); MONOCYTES % 8.2 % (4.4-11.3); NEUTROPHILS # (AUTO) 4.7 (2.1-6.9); NEUTROPHILS % 73.8 % (38.7-80.0); PLATELET COUNT 203 x10e3/uL (140-360); RED BLOOD COUNT 3.86 x10e6/uL (3.6-5.1); RED CELL DISTRIBUTION WIDTH 14.1 % (11.7-14.4)
[2018-09-29 03:28] LABS: ANION GAP 14.1 mmol/L (8-16); BLOOD UREA NITROGEN 7 mg/dL (7-26); BUN/CREATININE RATIO 8 (6-25); CALCIUM 9.2 mg/dL (8.4-10.2); CARBON DIOXIDE 23 mmol/L (22-29); CHLORIDE 104 mmol/L (98-107); EST GLOMERULAR FILTRATION RATE > 60 ML/MIN (60-); GLUCOSE 121 mg/dL (74-118); MAGNESIUM 1.5 MG/DL (1.3-2.1); POTASSIUM 3.1 mmol/L (3.5-5.1); SODIUM 138 mmol/L (136-145)
[2018-09-29] MEDS ORDERED: POTASSIUM CHLORIDE 20 MEQ TAB CR PO NR (07:27)
[2018-09-29] MEDS: INSULIN LISPRO 100 UNIT/1 ML 3ML VIAL SQ SCH ×4 (08:53→21:58)
[2018-09-29] MEDS: PANTOPRAZOLE 40 MG 10ML VIAL IV SCH (08:53)
[2018-09-29] MEDS: METOCLOPRAMIDE HCL 10 MG/2ML VIAL IV SCH ×4 (08:53→21:05)
[2018-09-29] MEDS: VANCOMYCIN 1GM/NS 250 ML 250 ML IV SCH ×2 (08:53→20:50)
[2018-09-29] MEDS: OYST-CAL-D 500MG TABLET PO SCH ×2 (08:53→17:00)
--- NOTE | 2018-09-29 19:36 | NUR ---
RECEIVED IN BED. NO DRAINAGE NOTED IN LOWER ABDOMEN. PATIENT IS ALERT AND ORIENTED.
[2018-09-29] MEDS: ATORVASTATIN 10 MG TAB PO SCH (21:06)
[2018-09-30] VITALS (7 sets, daily range): BP systolic 122–148; BP diastolic 60–69
[2018-09-30] MEDS: PIPER-TAZ 3.375 GM 50 ML IV SCH ×4 (00:38→18:14)
[2018-09-30 03:13] LABS: BASOPHILS % 0.5 % (0.0-1.0); EOSINOPHILS # (AUTO) 0.1 (0.0-0.4); EOSINOPHILS % 2.2 % (0.0-6.0); HEMATOCRIT 34.1 % (34.2-44.1); LYMPHOCYTES # (AUTO) 1.4 (1.0-3.2); LYMPHOCYTES % 22.3 % (18.0-39.1); MEAN CORPUSCULAR HEMOGLOBIN 27.2 pg (28-32); MEAN CORPUSCULAR HGB CONC 32.3 g/dL (31-35); MEAN CORPUSCULAR VOLUME 84.4 fL (81-99); MONOCYTES # (AUTO) 0.7 (0.2-0.8); MONOCYTES % 10.2 % (4.4-11.3); NEUTROPHILS # (AUTO) 4.1 (2.1-6.9); NEUTROPHILS % 64.2 % (38.7-80.0); PLATELET COUNT 239 x10e3/uL (140-360); RED BLOOD COUNT 4.04 x10e6/uL (3.6-5.1); RED CELL DISTRIBUTION WIDTH 14.4 % (11.7-14.4)
[2018-09-30] MEDS: ACETAMINOPHEN/ASPIRIN/CAFFEINE 1 EA TAB PO PRN (03:15)
[2018-09-30 04:31] LABS: ANION GAP 14.6 mmol/L (8-16); CARBON DIOXIDE 22 mmol/L (22-29); CHLORIDE 105 mmol/L (98-107); POTASSIUM 3.6 mmol/L (3.5-5.1); SODIUM 138 mmol/L (136-145)
[2018-09-30 04:32] LABS: BLOOD UREA NITROGEN 7 mg/dL (7-26); BUN/CREATININE RATIO 8 (6-25); CALCIUM 9.4 mg/dL (8.4-10.2); CREATININE, SERUM 0.84 mg/dL (0.57-1.11); EST GLOMERULAR FILTRATION RATE > 60 ML/MIN (60-); GLUCOSE 153 mg/dL (74-118); MAGNESIUM 1.9 MG/DL (1.3-2.1)
--- NOTE | 2018-09-30 07:10 | NUR ---
MD SAMSON AT BEDSIDE, PROVIDED WITH SUTURE REMOVAL KIT, 4X4, PAPER TAPE. MD SAMSON REMOVED DRAIN FROM ANTERIOR ABD AT THIS TIME.
--- NOTE | 2018-09-30 07:26 | NUR ---
REPORT GIVEN TO ONCOMING NURSE.
[2018-09-30] MEDS: INSULIN LISPRO 100 UNIT/1 ML 3ML VIAL SQ SCH ×4 (08:00→22:08)
[2018-09-30] MEDS: PANTOPRAZOLE 40 MG 10ML VIAL IV SCH (09:24)
[2018-09-30] MEDS: OYST-CAL-D 500MG TABLET PO SCH ×2 (09:24→16:30)
[2018-09-30] MEDS: METOCLOPRAMIDE HCL 10 MG/2ML VIAL IV SCH ×4 (09:24→22:08)
--- NOTE | 2018-09-30 14:11 | NUR ---
Nutrition Screen Note RD Recommendation for Physician: -Continue ADA diet as ordered Plan of Care: RD following, monitoring for tolerance and adequacy Nutrition reason for involvement: LOS Primary Diagnose(s): left adnexal abscess likely related to diverticular disease PMH: hypertension, hypercholesterolemia, and diabetes Ht: 61in Wt: 214.5lb BMI: 40.5kg/m2 IBW: 105lb RD Assessment: (09/30) Chart reviewed. Labs and meds reviewed. 62 yo F, who is admitted for abdominal pain. During my assessment, pt reports good appetite with ~75% recorded PO intake. Pt denies any N/V/D/C. LBM 09/30, loose stool per pt (possibly due to meds and IVF). Pt denies any chewing or swallowing difficulty. No recent weight loss reported. Will continue to monitor and follow. Current Diet: ADA diet Malnutrition Evaluation (09/30/18) The patient does not meet criteria for a specified degree of malnutrition at this time. Will re-evaluate at follow-up as appropriate. Diet Education Needs Assessment: Diet education not indicated. Nutrition Care Level: low Signed: Luiza Nolan, MS, RD, LD
--- NOTE | 2018-09-30 18:58 | NUR ---
WALKING ROUNDS PERFORMED, RECEIVED PT LAYING SEMI FOWLERS IN BED, AAOX3, RR EVEN AND NON-LABORED, ON RA. NO S/SX OF DISTRESS NOTED. 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 LEFT PT LAYING SEMI FOWLERS IN BED, BED IN LOW LOCKED POSITION, SIDE RAILS UX2, CALL LIGHT AND PHONE WITHIN REACH.
[2018-09-30] MEDS: ATORVASTATIN 10 MG TAB PO SCH (22:08)
[2018-10-01] VITALS: BP 115/59
[2018-10-01] MEDS: PIPER-TAZ 3.375 GM 50 ML IV SCH ×2 (00:15→05:47)
[2018-10-01] MEDS: ACETAMINOPHEN/ASPIRIN/CAFFEINE 1 EA TAB PO PRN (01:33)
[2018-10-01 04:00] VITALS: BP 104/53
--- NOTE | 2018-10-01 07:25 | NUR ---
Rcvd patient in report this am. Patient is asleep in bed at this time. No s/s of distress noted
[2018-10-01] MEDS ORDERED: METOCLOPRAMIDE10 MG PO (08:23)
[2018-10-01] MEDS ORDERED: METRONIDAZOLE500 MG PO (08:23)
[2018-10-01] MEDS ORDERED: TYLENOL # 31 EA PO (08:23)
[2018-10-01] MEDS ORDERED: CIPRO500 MG PO (08:23)
[2018-10-01 08:35] VITALS: BP 114/57
[2018-10-01] MEDS: METOCLOPRAMIDE HCL 10 MG/2ML VIAL IV SCH (08:42)
[2018-10-01] MEDS: OYST-CAL-D 500MG TABLET PO SCH (08:42)
[2018-10-01] MEDS: PANTOPRAZOLE 40 MG 10ML VIAL IV SCH (08:42)
[2018-10-01] MEDS: INSULIN LISPRO 100 UNIT/1 ML 3ML VIAL SQ SCH (08:47)
[2018-10-01 09:10] VITALS: BP 114/57
--- NOTE | 2018-10-01 10:05 | NUR ---
IV removed from right wrist at this time. Pressure dressing applied.
--- NOTE | 2018-10-01 11:27 | NUR ---
Patient discharged from facility to home. Patient assisted out via wheelchair. Reviewed all discharge paperwork, follow up appts, and RX's given.
--- NOTE | 2018-10-02 09:34 | Discharge Summary ---
ADMISSION DIAGNOSES 1. Diverticular abscess with sepsis. 2. Hypertension. 3. Hyperlipidemia. 4. Type 2 diabetes. 5. Gastroesophageal reflux disease. 6. Urinary tract infection. 7. Acute kidney injury versus chronic kidney disease. 8. Morbid obesity. DISCHARGE DIAGNOSES 1. Diverticular abscess with sepsis. 2. Hypertension. 3. Hyperlipidemia. 4. Type 2 diabetes. 5. Gastroesophageal reflux disease. 6. Urinary tract infection. 7. Acute kidney injury versus chronic kidney disease. 8. Morbid obesity. 9. CT-guided drainage of left lower quadrant abscess. PAST MEDICAL HISTORY: Patient has a history of hypertension, hyperlipidemia, GERD, type 2 diabetes, diverticulosis. PAST SURGICAL HISTORY: Left hip replacement, left foot surgery x2, right foot bone spur and tendon repair, bladder lift, deviated septum repair. FAMILY HISTORY: Patient's sisters have diabetes. Patient's mom has cancer. SOCIAL HISTORY: Patient says she quit smoking about 5 or 6 years ago and drinks occasional alcohol. She denies drug use. HOSPITAL COURSE: A 62-year-old female complains of left lower quadrant pressure that began 1 month ago. A week later, she developed a boil and got clindamycin from her PCP. She had an allergic reaction to clindamycin, so she stopped taking the antibiotics, but continued the Bactroban topical. On September 12, 2018, she had a sharp pain, then felt a pop and the pain resolved. Yesterday, the left lower quadrant abdominal pain resumed, but is worsening. She denies dysuria, hematuria, nausea, vomiting, diarrhea, and fever at home. On admission, patient was started on vancomycin and Zosyn IV. Surgery was consulted. CT of the abdomen showed left adnexal fluid collection/cystic structure containing gas, favored to reflect an abscess or fistulization related to prior sigmoid diverticulitis. She was then advised to have transvaginal ultrasound, which showed a 4 cm fluid and gas collection along the right superior aspect of the uterus/right adnexa, likely related to prior diverticulitis. This appears to be separate from the right ovary, although poorly visualized. She then had a CT-guided drainage of the abscess on September 25, 2018 with percutaneous drain placement. Patient tolerated the procedure well. The drain was discontinued by surgery on September 30, 2018. Patient's urine came back positive for E. coli. Patient's abdominal fluid came back positive for Streptococcus group F and a gram-negative sadiq, which was sent to an outside pharmacy. Upon speaking to lab, she said that their equipment cannot run the test on the gram-negative sadiq which she believes to be Eikenella species. So, after speaking with Dr. Roberts, patient was sent home with another week of Cipro and Flagyl p.o. as well as Reglan for gastroparesis and Tylenol No. 3 for pain. She will follow up with primary care in 1 to 2 weeks and GI as discussed. Vital signs stable. Patient afebrile. Patient understands discharge instructions and agrees to plan. Dictated by: Estella Mccall NP SUSANA ROBERTS MD Job#: [id number]
== END 2018-10-01 11:27 | disposition home or self-care (01) | DRG 871 ==
LOC: ER 20:04 → INTOOBSV 23:28 → ERHOLD 23:28 → MED/SURG 09-24 00:25 → OBSVTOIN 09-24 12:08
PROVIDERS: ADMIT Internal Medicine; ATTEND Internal Medicine
PROC: 0W9G30Z Drainage of Peritoneal Cavity with Drainage Device, Percutaneous Approach (ICD-10-PCS; principal; 2018-09-25)
DX: A41.9 Sepsis, unspecified organism (principal); K65.1 Peritoneal abscess; K57.20 Diverticulitis of large intestine with perforation and abscess without bleeding; N39.0 Urinary tract infection, site not specified; N17.9 Acute kidney failure, unspecified; Z68.41 Body mass index [BMI] 40.0-44.9, adult; K21.9 Gastro-esophageal reflux disease without esophagitis; E11.9 Type 2 diabetes mellitus without complications; E66.01 Morbid (severe) obesity due to excess calories; Z79.4 Long term (current) use of insulin
CPT/HCPCS: 36415; 49406; 74177; 74470; 76830; 80048; 80053; 80202; 81001; 82607; 82728; 82746; 82948; 83036; 83540; 83690; 83735; 83880; 84439; 84443; 84466; 85025; 85610; 85730; 86850; 86900; 86920; 87070; 87071; 87075; 87086; 87186; 87205; 99152; 99153; 99284; C1729; C1769; G0378; J1885; J1940; J2250; J2270; J2405; J2543; J2765; J3370; J7030; J7050; P9016; Q9967